=== PATIENT | male | born 1955 | race Caucasian/White ===

== ENCOUNTER 2023-10-19 14:37 | Outpatient (REF) | payer MEDICARE, MEDICAID, SELFPAY ==
--- NOTE | 2023-10-20 10:38 | MHC.AU.MED ---
Medical Clearance for Hearing Instrumentation Date: 10/19/23 Patient Name: Ryan Hathaway Date of : 1955 Primary Care Provider: Winston Carter MD We have seen your patient on 10/19/23 and have determined that they are a candidate for amplification (See accompanying report). Specifically, they would benefit from: Hearing aid use in both ears There is a statute that addresses Medical Evaluation Requirements prior to fitting a patient with a hearing aid. According to [place] statute 265 CMR:6.03(1), (a) General. Except as provided in 265 CMR 6.03(1)(b), a pigment pumper shall not sell a hearing aid unless the prospective user has presented to the pigment pumper a written statement signed by a licensed physician that states that the patient's hearing loss has been medically evaluated and the patient may be considered a candidate for a hearing aid. The medical evaluation must have taken place within the preceding six months. Please note: Due to the [place] Statute referenced above, we cannot accept a signature other than that of a licensed physician. DIALYSIS CHIEF EQUIPMENT TECHNICIAN and PA signatures cannot be accepted. I am in agreement with the above recommendation. There is no medical contraindication for hearing instrumentation. Physician Signature Date Physician Name (Printed)
--- NOTE | 2023-10-20 10:50 | MHC.AU.HA1 ---
Hearing Aid Evaluation Date of Visit: 10/19/23 Historical Information: Description of Hearing: Mild sloping to moderately-severe sensorineural hearing loss, bilaterally Summary: Ryan is ready to pursue amplification to help ease some of his communication difficulties. Discussed pros and cons of different styles and technologies. Ryan opted for rechargeable custom hearing aids, as he was adamant that he did not want any portion of the hearing aid behind his ears. He is also interested in bluetooth capabilities to his iPhone. Impressions taken, bilaterally, without incident - in hold drawer, waiting for medical clearance. Hearing Aid Prescription: Based on the individual?s shared listening needs, communication environments, dexterity, desire for connectivity, and personal preferences, the following prescription for amplification has been made: Right ear: Make, Model, Color: PromoJam AI 1600 ITC-R Color: [place] Battery Size: Rechargeable Left ear: Left ear prescription to be same as Right Hearing Aid above: Make, Model, Color: PromoJam AI 1600 ITC-R Color: [place] Battery Size: Rechargeable Accessories/Assistive Technology: Hvac Field Service Technician Plan of Care: Patient wishes to purchase hearing aids as prescribed Action Taken/Action Needed: Medical Clearance to be requested from PCP/ENT. Hearing Instrument Fitting to be scheduled when materials arrive Primary Diagnosis: H90.3 Bilateral Sensorineural Hearing Loss Signature: Provider: Levon Mckee, [facility]
== END 2023-10-19 14:38 | disposition home or self-care (01) ==
LOC: HO.SH 14:37
PROVIDERS: Visit Provider Internal Medicine
DX: Z01.118 Encounter for examination of ears and hearing with other abnormal findings (principal); Z46.1 Encounter for fitting and adjustment of hearing aid; H90.3 Sensorineural hearing loss, bilateral
CPT/HCPCS: 92557; 92591; V5275

== ENCOUNTER 2023-11-19 12:56 | Outpatient (REF) | payer MEDICARE, MEDICAID, SELFPAY | END 2023-11-19 12:57 | disposition home or self-care (01) | LOC: HO.HAP 12:56 | PROVIDERS: PCP Internal Medicine; Visit Provider Internal Medicine | DX: Z46.1 Encounter for fitting and adjustment of hearing aid (principal); H90.3 Sensorineural hearing loss, bilateral | CPT/HCPCS: V5011; V5020; V5160; V5259 ==

== ENCOUNTER 2023-12-03 13:40 | Outpatient (REF) | payer MEDICARE, MEDICAID, SELFPAY | END 2023-12-03 13:41 | disposition home or self-care (01) | LOC: HO.HAP 13:40 | PROVIDERS: Visit Provider Internal Medicine | DX: Z13.89 Encounter for screening for other disorder (principal) ==

== ENCOUNTER 2024-01-13 13:57 | Outpatient (REF) | payer SELFPAY | END 2024-01-13 13:58 | disposition home or self-care (01) | LOC: HO.HAP 13:57 | PROVIDERS: Visit Provider Internal Medicine | DX: Z46.1 Encounter for fitting and adjustment of hearing aid (principal) | CPT/HCPCS: V5267 ==

== ENCOUNTER 2024-08-29 11:45 | Outpatient (REF) | payer SELFPAY ==
--- OUTSIDE RECORDS SUMMARY | 2024-08-29 13:23 | XMS_ITS | Continuity of Care Document ---
Author Organization [facility] ter Address [address] [place] [id number]- Care Team Providers Care Refuse Collector Supervisor Name Role Phone Lane Cat MD Primary Care Physician Bridget weaver Encounter [facility] Date(s): 08/23/24 - 08/23/[address] [address] Discharge Disposition: A-D/C Home Attending Physician: Nitin Rodríguez MD Admitting Physician: Nitin Rodríguez MD Referring Physician: Nitin Rodríguez MD Encounter Type: Disch Daystay Allergies, Adverse Reactions, Alerts No Known Allergies Medications aspirin 81 mg oral delayed release tablet 81 mg, 1, tablet, By Mouth, Daily, # 30 tablet, Refills 0, Maintenance, 08/23/24 11:04:00 AM EST, Partial fill upon patient request if the prescription is for a schedule II opioid drug. Start Date: 08/23/24 Status: Ordered Quantity: 30.0 Unit: tablet Repeat number: 1 Coreg 25 mg oral tablet 25 mg, 1, tablet, By Mouth, 2 times a day, # 60 tablet, Refills 0, Maintenance, 08/23/24 11:01:00 AM EST, Partial fill upon patient request if the prescription is for a schedule II opioid drug. Start Date: 08/23/24 Status: Ordered Quantity: 60.0 Unit: tablet Repeat number: 1 Digox 125 mcg (0.125 mg) oral tablet 1 tablet = 125 mcg, By Mouth, Daily, 0 Refills, Maintenance, 08/23/24 11:01:00 AM EST, Partial fill upon patient request if the prescription is for a schedule II opioid drug. Start Date: 08/23/24 Status: Ordered Repeat number: 1 Entresto 24 mg-26 mg oral tablet 1 tablet, By Mouth, 2 times a day, # 60 tablet, 5 Refills, Maintenance, 08/23/24 12:09:00 PM EST, Tablet, [facility], Partial fill upon patient request if the prescription is for a schedule II opioid drug., 1 tablet By Mouth 2 times a day, 175, cm, 08/23/24 11:11:00 EST, Height Start Date: 08/23/24 Status: Ordered Quantity: 60.0 Unit: tablet Repeat number: 6 Fish Oil 1200 mg oral capsule 1 capsule = 1,200 mg, By Mouth, Daily, # 90 capsule, 0 Refills, Maintenance, 08/23/24 11:01:00 AM EST, Capsule, Partial fill upon patient request if the prescription is for a schedule II opioid drug. Start Date: 08/23/24 Status: Ordered Quantity: 90.0 Unit: capsule Repeat number: 1 Jardiance 10 mg oral tablet 1 tablet = 10 mg, By Mouth, Daily in AM, # 30 tablet, 5 Refills, Maintenance, 08/23/24 12:09:00 PM EST, Tablet, [facility], Partial fill upon patient request if the prescription is for a schedule II opioid drug., 175, cm, 08/23/24 11:11:00 EST, Height Start Date: 08/23/24 Status: Ordered Quantity: 30.0 Unit: tablet Repeat number: 6 metFORMIN 500 mg oral tablet 2 tablet = 1,000 mg, By Mouth, 2 times a day, # 60 tablet, 0 Refills, Maintenance, 08/23/24 11:02:00 AM EST, Tablet, Partial fill upon patient request if the prescription is for a schedule II opioid drug. Start Date: 08/23/24 Status: Ordered Quantity: 60.0 Unit: tablet Repeat number: 1 Multivitamin 0 Refills, Maintenance, 08/23/24 11:02:00 AM EST, Partial fill upon patient request if the prescription is for a schedule II opioid drug. Start Date: 08/23/24 Status: Ordered Repeat number: 1 oxyCODONE 10 mg oral tablet 1 tablet = 10 mg, By Mouth, Every 4 hours, PRN as needed for pain, 0 Refills, Maintenance, 08/23/24 11:03:00 AM EST, Tablet, Partial fill upon patient request if the prescription is for a schedule II opioid drug. Start Date: 08/23/24 Status: Ordered Repeat number: 1 Ozempic (1 mg dose) 4 mg/3 mL subcutaneous solution = 1 mg, Subcutaneous Injection, Every week, # 3 mL, 0 Refills, Maintenance, 08/23/24 11:04:00 AM EST,Solution, Partial fill upon patient request if the prescription is for a schedule II opioid drug. Start Date: 08/23/24 Status: Ordered Quantity: 3.0 Unit: mL Repeat number: 1 Prebiotic Inulin-FOS = 3 Gm, By Mouth, Daily, 0 Refills, Maintenance, 08/23/24 11:02:00 AM EST, Partial fill upon patient request if the prescription is for a schedule II opioid drug. Start Date: 08/23/24 Status: Ordered Repeat number: 1 sertraline 100 mg oral tablet 2 tablet = 200 mg, By Mouth, Daily, # 30 tablet, 0 Refills, Maintenance, 08/23/24 11:03:00 AM EST, Tablet, Partial fill upon patient request if the prescription is for a schedule II opioid drug. Start Date: 08/23/24 Status: Ordered Quantity: 30.0 Unit: tablet Repeat number: 1 simvastatin 40 mg oral tablet 40 mg, 1, tablet, By Mouth, Daily at bedtime, # 30 tablet, Refills 0, Maintenance, 08/23/24 11:04:00 AM EST, Partial fill upon patient request if the prescription is for a schedule II opioid drug. Start Date: 08/23/24 Status: Ordered Quantity: 30.0 Unit: tablet Repeat number: 1 Xarelto 15 mg oral tablet 1 tablet = 15 mg, By Mouth, Daily in PM, # 30 tablet, 0 Refills, Maintenance, 08/23/24 11:04:00 AM EST, Tablet, Partial fill upon patient request if the prescription is for a schedule II opioid drug. Start Date: 08/23/24 Status: Ordered Quantity: 30.0 Unit: tablet Repeat number: 1 Problem List Condition Confirmation Course Effective Dates Status H ealth Status Informant Atrial Fibrillation Confirmed 10/02/11 Active Other Primary Cardiomyopathies Confirmed 10/02/11 Active Severe obesity Confirmed Active Vital Signs Most recent to oldest [Reference Range]: 1 2 3 Height 175 cm (08/23/24 11:11 AM) Weight 124 kg (08/23/24 11:11 AM) Oxygen Saturation [94-100 %] 95 % (08/23/24 2:00 PM) 94 % (08/23/24 1:30 PM) 95 % (08/23/24 1:00 PM) Pulse Rate [55-90 bpm] 93 bpm *H* (08/23/24 11:11 AM) Body Mass Index [18.5-24.99 kg/m2] 40.49 kg/m2 *>HHI* (08/23/24 11:11 AM) Blood Pressure [90-138/55-84 mm Hg] 127/76mm Hg (08/23/24 2:00 PM) 131/73mm Hg (08/23/24 1:30 PM) 124/74mm Hg (08/23/24 1:00 PM) Respiratory Rate [16-30 br/min] 25 br/min (08/23/24 2:00 PM) 21 br/min (08/23/24 1:30 PM) 19 br/min (08/23/24 1:00 PM) Temperature [96.8-100.4 DegF] 98.7 DegF (08/23/24 11:11 AM) Mode of Delivery (Oxygen) Room air (08/23/24 2:00 PM) Room air (08/23/24 1:30 PM) Room air (08/23/24 1:00 PM) Blood pressure sites Arm, left (08/23/24 12:14 PM) Arm, left (08/23/24 11:11 AM) Arm, right (08/23/24 10:45 AM) Temperature Route Temporal (08/23/24 11:11 AM) Weight Obtained Via Standing scale (08/23/24 11:11 AM) Social History Social History Type Response Smoking Status Current every day osorio melchor entered on: 08/19/16 Sex Sex Representation Male (finding) Note * Event Display: Hemodynamic Procedure Report Authored Date: [id number] * Jennifer Lay RN: PERFORM Event Display: Discharge/Transfer Note Hospital Authored Date: [id number] Nursing Discharge Note Entered On: 08/23/2024 15:00 EST Performed On: 08/23/2024 14:56 EST by Jennifer Lay RN Nursing Discharge Note 2 Discharge Time : 08/23/2024 14:30 EST Discharge Level of Care at Discharge : Home/Assisted/Foster Care Patient Left Unit Via : Ambulatory Patient Accompanied Off Unit with : Responsible adult DC Instructions Provided & Signed by Pt : Yes Patient Understands D/C Instructions : Yes Patient Instructions Discharge Signed : Yes Discharge Comments : Patient discharged without issue- right radial access site stable, no ooze or hematoma. 100% teachback with all education and med changes Did Pt have Specialty Bed or Wound Vac : No Jennifer Lay RN - 08/23/2024 14:56 EST * Jennifer Lay RN: PERFORM Event Display: Patient Education/Instruction Authored Date: [id number] Inpatient Adult Discharge Instructions. [address] [address] Name: NEERU MEDELLIN : 1955?? Visit: 08/23/2024 09:53?? Current Date: 08/23/2024 13:43 ?? Account: [id number]?? Inpatient Adult Discharge Instructions We would like to thank you for allowing us to assist you with your healthcare needs. The following includes patient education materials and information regarding your injury/illness. Our entire staffstrives to provide an excellent experience for our patients and their families. PLEASE ENSURE YOU FOLLOW-UP PER THE INSTRUCTIONS BELOW! ?? YOUR OPINION IS IMPORTANT TO US! Please complete the survey you may receive by mail or email. Your feedback will be used to make improvements to the healthcare experiences of our patients and their families. Surveys are administered by [employer] ?? If further treatment with your primary care physician or another doctor is recommended, it is important for you to keep the appointment. Call your primary care physician or return to the Emergency Department immediately if your condition worsens, fails to improve, or new symptoms develop. If you need to find a doctor, you can call [facility] for a referral at [phone] or toll free at [phone]) or log in to [email or web address] [email or web address].. ?? [facility], in keeping with [facility] guidance, no longer requires face masks for staff, patientsor visitors in most situations. Similiar to time spent indoors at other locations, there is the chance that you were exposed to repiratory viruses during your time with us (such as flu or COVID-19). If you develop symptoms concerning for a viral respiratory infection, please seek testing (and treatment if indicated) from your medical provider or home test kit. ?? You can view and manage your care through the patient portal or by using a health care jody of your choosing. [employer] is a website that allows you to securely view your medical information including your hospital discharge summary, office visit summaries, medications and follow-up visits. You can also request appointments, renew medications, and request access to your medical information using a health care jody of your choosing, or just ask a question. You are entitled to know the individuals who participated in your treatment. This information is available within your medical record and will be provided upon your request. You can enroll at [email or web address] or register d uring your next office visit. You have been discharged from [facility], Patient Care Unit: CARE??. If you have any questions regarding these instructions, including results of studies pending, afteryou leave, please call us and we will be happy to assist you 12/01. [facility] Nursing Unit Direct Phone Number, for 12/01 contact and results of studies pending CARE [address] [place] [address] Your Care Team Attending Physician Nitin Rodríguez MD?? Consulting Providers Nitin Rodríguez MD?? Discharging Providers Everett Ibanez MD Tests Performed Below is a partial list of the tests performed during your hospitalization. You may have had other tests and procedures not included in this list. Please discuss all test results with your provider. Basic Metabolic Panel CBC GLUCOSE POC INR PTT Type and Screen Basic Metabolic Panel?? CBC?? Glucose POC?? INR?? PTT?? Type and Screen?? Primary Care Provider Stephania DELAROSA , Lane Morgan?? Advance Directive Health Care Proxy on File No Discharge Vitals Temperature: 98.7 DegF Height: 175 cm Pulse Rate:??93 bpm??High Weight: 124 kg Respiratory Rate: 23 br/min Body Mass Index:??40.49 kg/m2??Critical Systolic Blood Pressure: 104 mm Hg Body surface area: 2.46 Diastolic Blood Pressure: 75 mm Hg ?? Oxygen Saturation: 95 % ?? Studies Pending All studies ordered during this hospital stay have been completed unless listed below. Please discuss all pending results with your provider listed above in these instructions. ?? No incomplete studies found?? What to do next Instructions From Your Doctor ?? Orders?? arterial hemostasis please, if no complications. ??Thanks!, ??08/23/24 12:16:00 EST?? You Need to Schedule the Following Appointments Follow Up with??Lane Cat MD Discharge Medications NEERU MEDELLIN :1955 Visit Date:08/23/2024 Medications: Please continue your medications until treatment is completed or stopped by your provider. Medications not listed below should be discontinued. Discuss any questions related to medications with your provider. What How Much When Instructions Next Dose New empagliflozin (Jardiance 10 mg oral tablet) 1 tab(s) Oral Daily in the morning Refills: 5 Pickup at [facility] Tomorrow AM New sacubitril-valsartan (Entresto 24 mg-26 mg oral tablet) 1 tab(s) Oral Twice a day Refills: 5 Pickup at [facility] Tonight Unchanged Aspirin (aspirin 81 mg oral delayed release tablet) 1 tab(s) Oral Daily Resume Unchanged Carvedilol (Coreg 25 mg oral tablet) 1 tab(s) Oral Twice a day Resume Unchanged Digoxin (Digox 125 mcg (0.125 mg) oral tablet) 1 tab(s) Oral Daily Resume Unchanged Inulin (Prebiotic Inulin-FOS) 3 gram Oral Daily Resume Unchanged Metformin (metFORMIN 500 mg oral tablet) 2 tab(s) Oral Twice a day Resume Unchanged Multivitamin Resume Unchanged [place]-3 Polyunsaturated Fatty Acids (Fish Oil 1200 mg oral capsule) 1 capsule Oral Daily Resume Unchanged Oxycodone (oxyCODONE 10 mg oral tablet) 1 tab(s) Oral Every 4 hours as needed for as needed for pain Resume Unchanged rivaroxaban (Xarelto 15 mg oral tablet) 1 tab(s) Oral Daily in PM Resume Unchanged semaglutide (Ozempic (1 mg dose) 4 mg/ 3 mL subcutaneous solution) 1 Milligram Subcutaneous Injection Every week Resume Unchanged Sertraline (sertraline 100 mg oral tablet) 2 tab(s) Oral Daily Resume Unchanged Simvastatin (simvastatin 40 mg oral tablet) 1 tab(s) Oral Daily at Bedtime Resume Pharmacy Information [facility]: [address], [place] [id number] [phone] ?? What How Much When Comments Stop Taking canagliflozin (Invokana 100 mg oral tablet) 1 tab(s) Oral Daily Prescription Given During Visit empagliflozin (Jardiance 10 mg oral tablet) - 1 tablet = 10 mg, By Mouth, Daily in AM, # 30 tablet,5 Refills, [facility], [address] [place] [phone]?? sacubitril-valsartan (Entresto 24 mg-26 mg oral tablet) - 1 tablet, By Mouth, 2 times a day, # 60 tablet, 5 Refills, [facility], [address] [place] [phone]?? Laboratory Results Below is a partial list of the most recent Laboratory test results done prior to this discharge. You may have had other tests and procedures not included in this list. Please discuss all test resultswith your provider. Basic Metabolic Panel (08/23/2024) ???Sodium - 140 mmol/L???Potassium - 4.2 mmol/L???Chloride - 104 mmol/L???Bicarbonate Level - 25 mmol/L???Anion Gap - 11 mmol/L???Glucose Level - 117 mg/dL???BUN - 22 mg/dL???Creatinine-Blood - 1.64 mg/dL???Estimated GFR Creatinine - 46 ML/MIN/1.73 M2???Calcium - 9.2 mg/dL CBC (08/23/2024) ???WBC - 7.6 k/mm3???RBC - 4.96 m/mm3???Hgb - 15.6 Gm/dL???Hct - 47.8 %???MCV - 96.4 femtoliters???MCH - 31.5 pg???MCHC - 32.6 Gm/dL???Platelet Count - 178 k/mm3???RDW-SD - 45.1 femtoliters???MPV - 9.4 femtoliters???Nucleated RBC (Automated) - 0.0 #/100 WBC'S???Abs. NRBC - 0.0 k/mm3 GLUCOSE POC (08/23/2024) ???Glucose, POC - 129 mg/dL INR (08/23/2024) ???INR - 1.1???Protime (PT) - 11.8 seconds PTT (08/23/2024) ???APTT - 28.3 seconds Type and Screen (08/23/2024) ???Blood Type - A Positive???Antibody Screen - Negative You will be contacted within 72 hours with your results. Allergies (NKA means No Known Allergies) NKA Problems Active Problems??(3) Atrial Fibrillation?? Other Primary Cardiomyopathies?? Severe obesity?? Education Materials Below is the list of Educational Leaflet Providered with your Discharge Instructions. [employer] Patient Education - Surgery Radial Cath Approach Discharge Instructions?? [employer] Patient Education - Procedural Sedation?? [employer] Patient Education - Discharge Instructions for Cardiac Catheterization?? Valuables and Belongings I fully understand and agree that [facility] accepts no responsibility for all my personal property including clothing, toilet articles, radios, jewelry, dentures, hearing aids, rings, money, or any other property that is in my possession or is brought to me after admission. I understand certain valuables may be placed in a hospital safe for a short period of time. I understand that the hospital is not liable for loss or damage due to accident, fire, or other natural occurrence while said property is in the safe. I accept full responsibility for any personal property that I keep with me, and will not hold the hospital responsible in case of loss or disappearance. I acknowledge that i have been encouraged to send valuables and belongings home. ?? Date for Pt to Sign Valuables/Belongings: 08/23/24 11:11:00 ?? Valuables & Belongings ?? Clothes Electronic devices Jewelry Monetary Items Personal devices Miscellaneous Medications (Valuables) Valuables at Bedside Pants, Shirt, Shoes, Undergarments ? Valuables Sent Home ? Valuables Sent to Security ? Valuables Sent to Locker ? Other Discharge Information ? Pulmonary Rehab Status?? Pulmonary Rehab Discharge Status?? Respiratory Rate: 23 br/min ? Common Emergency Awareness Tips IS IT A STROKE? Act FAST and Check for these signs: FACE Does the face look uneven? ARM Does one arm drift down? SPEECH Does their speech sound strange? TIME Call at any sign of stroke ?? Heart Attack Signs Chest discomfort: Most heart attacks involve discomfort in the center of the chest and lasts more than a few minutes, or goes away and comes back. It can feel like uncomfortable pressure, squeezing, fullness or pain. Discomfort in upper body: Symptoms can include pain or discomfort in one or both arms, back, neck, jaw or stomach. Shortness of breath: With or without discomfort. Other signs: Breaking out in a cold sweat, nausea, or lightheaded. Remember, MINUTES DO MATTER. If you experience any of these heart attack warning signs, call to get immediate medical attention! ?? Smoking can increase your chances of developing chronic health problems and can cause harmful effects to other family members in your house. If you smoke, you are strongly encouraged to quit. Please call [facility] at [phone] or [phone] ([phone]) or log in to [email or web address] for referrals to smoking cessation programs. ?? 217 Suicide & Crisis Lifeline is available 12/01 if you or someone you know needs to find a reason to keep living. By calling 619 you'll be connected to a skilled, trained counselor at a crisis center in your area. INPATIENT DISCHARGE INSTRUCTIONS SIGNATURE PAGE LACIE NEERU Location:[facility] Registration Date and Time:08/23/2024 09:53 EST Primary Care Physician: Stephania DELAROSA , Lane Morgan Attending Physician: Marcos DELAROSA, Nitin Hunt, I NEERU MEDELLIN, have received the above patient education materials/instructions and have verbalized understanding. If ambulance or transport services are being used I further acknowledge being given a choice of service. ?? If you need to contact me, please call me at this number: . Patient/Manager Front Office Name: Patient/Manager Front Office Signature: Relationship to Patient: Witness Name/Signature: Date: * Jennifer Lay RN: PERFORM, SIGN, VERIFY Event Display: Patient Education Handout Authored Date: [id number] * Jennifer Lay RN: PERFORM Event Display: Patient Education Leaflets Authored Date: [id number] Empagliflozin ?? [id number] Empagliflozin Brand Name(s): Jardiance??, Glyxambi?? (as a combination product containing Empagliflozin and Linagliptin), Synjardy?? (as a combination product containing Empagliflozin and Metformin), Trijardy?? (as a combination product containing Empagliflozin, Linagliptin, and Metformin) ?? WHY is this medicine prescribed? Empagliflozin is used along with diet and exercise, and sometimes with other medications, to lower blood sugar levels in adults and children 10 years of age and older with type 2 diabetes (condition in which blood sugar is too high because the body does not produce or use insulin normally). Empagliflozin is also used to reduce the risk of stroke, heart attack, or in people who have type 2 diabetes along with heart and blood vessel disease. Empagliflozin is also used in adults with heart failure to reduce the risk of needing to be hospitalized and due to heart and blood vessel disease. It is also used to reduce the risk of worsening kidney disease, the need to be hospitalized, and the risk of due to heart disease in adults with kidney disease. Empagliflozin is in a class of medications called sodium-glucose co-transporter 2 (SGLT2) inhibitors. It lowers blood sugar by causing the kidneys to get rid of more glucose in the urine. Empagliflozin is not used to treat type 1 diabetes (condition in which the body does not produce insulin and, therefore, cannot control the amount of sugar in the blood) or diabetic ketoacidosis (a serious condition that may develop if highblood sugar is not treated). Over time, people who have diabetes and high blood sugar can develop serious or life-threatening complications, including heart disease, stroke, kidney problems, nerve damage, and eye problems. Taking empagliflozin, making lifestyle changes (e.g., diet, exercise, quitting smoking), and regularly checking your blood sugar may help to manage your diabetes and improve your health. This therapy may also decrease your chances of having a heart attack, stroke, or other diabetes-related complications such as kidney failure, nerve damage (numb, cold legs or feet; decreased sexual ability in men and women), eye problems, including changes or loss of vision, or gum disease. Your doctor and other healt hcare providers will talk to you about the best way to manage your diabetes. HOW should this medicine be used? Empagliflozin comes as a tablet to take by mouth. It is usually taken once a day in the morning with or without food. Take empagliflozin at around the same time every day. Follow the directions on your prescription label carefully, and ask your doctor or pharmacist to explain any part you do not understand. Take empagliflozin exactly as directed. Do not take more or less of it or take it more often than prescribed by your doctor. Your doctor may start you on a low dose of empagliflozin and increase your dose as needed. Empagliflozin helps to control your condition, but does not cure it. Continue to take empagliflozineven if you feel well. Do not stop taking empagliflozin without talking to your doctor. Ask your pharmacist or doctor for a copy of the medical records tech's information for the patient. Are there OTHER USES for this medicine? This medication may be prescribed for other uses; ask your doctor or pharmacist for more information. What SPECIAL PRECAUTIONS should I follow? Before taking empagliflozin, ??? tell your doctor and pharmacist if you are allergic to empagliflozin, any other medications, orany of the ingredients in empagliflozin tablets. Ask your pharmacist for a list of the ingredients.??? tell your doctor and pharmacist what other prescription and nonprescription medications, vitamins, nutritional supplements, and herbal products you are taking or plan to take. Your doctor may need to change the doses of your medications or monitor you carefully for side effects. ??? tell your doctor if you regularly drink alcohol or sometimes drink large amounts of alcohol in a short time (binge drinking), have ever had an amputation, are on a low sodium diet, or if you have an infection. Also, tell your doctor if you have or have ever had urinary tract infections or problems with urination, low blood pressure, high cholesterol, pancreatic disease including pancreatitis (swelling of thepancreas) or have had surgery on your pancreas, yeast infections in the genital area, peripheral vascular disease (narrowing of blood vessels in feet, legs, or arms causing numbness, pain, or coldness in that part of the body), neuropathy (nerve damage that causes tingling, numbness, and pain, usually in your hands and feet), foot ulcers or sores, or kidney or liver disease. If you are male, tellyour doctor if you have never been circumcised. Tell your doctor if you are eating or drinking lessdue to illness, surgery, or a change in your diet; if you are following a ketogenic diet (a high fat, low carbohydrate diet); or if you have recently had diarrhea, vomiting, been in the sun too long,or have been sweating a lot, which may cause dehydration (loss of a large amount of body fluids). ??? tell your doctor if you are , plan to become , or are . Do not breastfeed while you are taking empagliflozin. If you become while taking empagliflozin, call your doctor. ??? if you are having surgery, including dental surgery, tell the doctor or dentist that you are taking empagliflozin. Your doctor will probably tell you to stop taking empagliflozin at least 3 days before a surgery. ??? alcohol may cause a change in blood sugar. Ask your doctor about thesafe use of alcoholic beverages while you are taking empagliflozin. ??? you should know that empagliflozin may cause dizziness, lightheadedness, and fainting when you get up too quickly from a lying position. If you have this problem, call your doctor. This problem is more common when you first start taking empagliflozin. To avoid this problem, get out of bed slowly, resting your feet on the floor for a few minutes before standing up. ??? ask your doctor what to do if you get sick, develop an infection or fever, experience unusual stress, or are injured. These conditions can affect your bloodsugar and the amount of empagliflozin you may need. What SPECIAL DIETARY instructions should I follow? Be sure to follow all exercise and dietary recommendations made by your doctor or dietitian. It is important to eat a healthful diet and exercise regularly. Follow your doctor's instructions about drinking enough fluids throughout the day while you are on this medication. What should I do IF I FORGET to take a dose? Take the missed dose as soon as you remember it. However, if it is almost time for the next dose, skip the missed dose and continue your regular dosing schedule. Do not take a double dose to make up for a missed one. What SIDE EFFECTS can this medicine cause? Some side effects can be serious. If you experience any of these symptoms, call your doctor immediately: ??? frequent, urgent, burning, or painful urination ??? urine that is cloudy, red, pink, or brown ??? pelvic or back pain, fever, nausea, or vomiting ??? (in women) vaginal odor, white or yellowish vaginal discharge (may be lumpy or look like cottage cheese), or vaginal itching ??? (in men) redness, itching, or swelling of the penis; rash on the penis; foul smelling discharge from the penis; or pain in the skin around the penis ??? feeling tired, weak, or uncomfortable; along with a fever and pain, tenderness, redness, and swelling of the genitals or the area between the genitals and the rectum If you experience any of the following symptoms, stop taking empagliflozin and call your doctor immediately or get emergency medical treatment: ??? rash ??? hives ??? itching ??? difficulty swallowing or breathing ??? swelling of the face, throat, tongue, lips, mouth, or eyes ??? hoarseness If you experience any of the following symptoms of ketoacidosis, stop taking empagliflozin and callyour doctor immediately or get emergency medical treatment. If possible, check for ketones in your urine if you have these symptoms, even if your blood sugar is less than 250 mg/dL: ??? nausea ??? vomiting ??? stomach-area pain ??? tiredness ??? difficulty breathing You should know that empagliflozin can increase the risk of having a lower limb (toe, foot, or leg)amputation. Your doctor will tell you how to take care of your legs and feet properly to help avoidinfections and complications that could lead to an amputation. Follow the doctor's instructions carefully and call your doctor right away if you have any pain, tenderness, sores, ulcers, or swollen, w arm, reddened area in your leg or foot, fever or chills, or other signs and symptoms of infection. Empagliflozin can cause dehydration. It is important that you drink plenty of water while taking empagliflozin. Talk to your doctor or pharmacist about the right amount of water to drink to prevent dehydration while taking empagliflozin. Empagliflozin may cause other side effects. Call your doctor if you have any unusual problems whiletaking this medication. If you experience a serious side effect, you or your doctor may send a report to the Food and Drug Administration's (FDA) MedWatch Adverse Event Reporting program online (https://www.fda.gov/Safety/MedWatch) or by phone ( ). What should I know about STORAGE and DISPOSAL of this medication? Keep this medication in the container it came in, tightly closed, and out of reach of children. Store it at room temperature and away from excess heat and moisture (not in the bathroom). It is important to keep all medication out of sight and reach of children as many containers (such as weekly pill minders and those for eye drops, creams, patches, and inhalers) are not child-resistant and young children can open them easily. To protect young children from poisoning, always lock safety caps and immediately place the medication in a safe location ??? one that is up and away and out of their sight and reach. https://www.[employer].org Unneeded medications should be disposed of in special ways to ensure that pets, children, and otherpeople cannot consume them. However, you should not flush this medication down the toilet. Instead,the best way to dispose of your medication is through a medicine take-back program. Talk to your pharmacist or contact your local garbage/recycling department to learn about take-back programs in your community. See the FDA's Safe Disposal of Medicines website (https://goo.gl/c4Rm4p) for more information if you do not have access to a take-back program. What should I do in case of OVERDOSE? In case of overdose, call the poison control helpline at . Information is also available online at https://www.poisonhelp.org/help. If the victim has collapsed, had a seizure, has trouble breathing, or can't be awakened, immediately call emergency services at 040. What OTHER INFORMATION should I know? Keep all appointments with your doctor and the laboratory. Your doctor will probably order certain laboratory tests before and during your treatment to check your body's response to empagliflozin. Your blood sugar levels should be checked regularly to determine your response to empagliflozin. Your doctor will order other lab tests, including glycosylated hemoglobin (HbA1c), to check your response to empagliflozin. Your doctor will also tell you how to check your response to this medication by measuring your blood sugar levels at home. Follow these instructions carefully. Before having any laboratory test, tell your doctor and the laboratory personnel that you are taking empagliflozin. Because of the way this medication works, your urine may test positive for glucose. You should always wear a diabetic identification bracelet to be sure you get proper treatment in anemergency. Do not let anyone else take your medication. Ask your pharmacist any questions you have about refilling your prescription. It is important for you to keep a written list of all of the prescription and nonprescription (cqql-pdr-yvqhzlm) medicines you are taking, as well as any products such as vitamins, minerals, or otherdietary supplements. You should bring this list with you each time you visit a doctor or if you areadmitted to a hospital. It is also important information to carry with you in case of emergencies. This report on medications is for your information only, and is not considered individual patient advice. Because of the changing nature of drug information, please consult your physician or pharmacist about specific clinical use. The [place] [employer] represents that the information provided hereunder was formulated with a reasonable standard of care, and in conformity with professional standards in the field. The [place] [employer] makes no representations or warranties, express or implied, including, but not limited to, any implied warranty of merchantability and/or fitness for a particular purpose, with respect to such information and specifically disclaims all such warranties. Users are advised that decisions regarding drug therapy are complex medical decisions requiring the independent, informed decision of an appropriate health rehab care assistant, and the information is provided for informational purposes only. The entire monograph for a drug should be reviewed for a thorough understanding of the drug's actions, uses and side effects. The [place] [employer] does not endorse or recommend the use of any drug.The information is not a substitute for medical care. AHFS?? Patient Medication Information???. ?? Copyright, 2023. The [employer] [employer]??, [address], [address], [place], [place]. All Rights Reserved. Duplication for commercial use must be authorized by [facility]. Selected Revisions: August 06, 2023. AHFS?? Patient Medication Information???. ?? Copyright, 2024 ?? * Jennifer Lay RN: PERFORM Event Display: Patient Education Leaflets Authored Date: [id number] Surgery Radial Cath Approach Discharge Instructions ?? 278 Radial Cath Approach Discharge Instructions ?? Activity Take it easy the rest of the day. Limit your activity on the affected side.?? Act as if your arm is broken for 24 hours. No lifting with affected arm for 24 hours. No pushing or pulling with the affected arm. Do not reach or lift with the affected arm. Do not place excessive pressure on the wrist. ?? Precautions Due to intravenous sedation: It is recommended that someone stay with you for the first night after your procedure. Do not drive or operate hazardous machinery for 24 hours. Do not make legal decisions for 24 hours. Avoid alcohol for 24 hours. Unless directed otherwise, keep yourself hydrated. ?? Dressing/Incision Care You may remove the dressing 24 hours after your procedure. Replace with band aid for an additional 24 hours. You may shower and cleanse the site with soap & water then pat dry. Avoid submersion of site in water x 5 days. Cover the with a clean band aid daily until site is healed. If the band aid becomes soiled, replacewith a clean new one. Do not apply any ointments, lotions, gels or powders to the puncture site. ?? When to contact your doctor If any of the following signs of infection occur: Fever greater than 100 degrees F Increased pain Drainage, redness or warmth at puncture site Tingling of the fingers and hand that last longer than 3 days Slight bubble of blood or bleeding from site: apply manual pressure and notify your doctor ?? Emergency situations: Bleeding from the site that will not stop: apply manual pressure and notify your doctor Profuse bleeding streaming from the puncture site: Apply manual pressure and notify your doctor immediately If your hand becomes bluish, cold to the touch, or painful, notify your doctor immediately or go toEmergency Department. For these emergent situations: If unable to contact your physician, call 911. ?? * Jennifer Lay RN: PERFORM Event Display: Patient Education Leaflets Authored Date: [id number] Procedural Sedation ?? 11781 Procedural Sedation Procedural sedation is medicine to ease discomfort, pain, and anxiety during a procedure. The medicine is often given through an IV (intravenous) line in your arm or hand. In some cases, the medicinemay be taken by mouth or inhaled. While you are under sedation, you will likely be awake. But you may not remember it afterward. Why procedural sedation is used Sedation is used for many types of procedures. The goal is to reduce pain, anxiety, and stressful memories of a procedure. It can help your healthcare provider treat you. For example, having a brokenbone fixed may be easier if you feel relaxed. This type of sedation is used only for short, basic procedures. It's not used for complex surgery. Some procedures that use this type of sedation include: ??? Dental surgery ??? Breast biopsy, to take a sample of breast tissue ??? Endoscopy, to look at gastrointestinal problems ??? Bronchoscopy, tocheck for lung problems ??? Bone or joint realignment, to fix a broken bone or dislocated joint ???Minor foot or skin surgery ??? Electrical cardioversion, to restore a normal heart rhythm ??? Lumbar puncture, to check for neurological disease ?? Risks of procedural sedation Risks and possible side effects include: ??? Headache ??? Nausea and vomiting ??? Bad memories of the procedure ??? Slowed breathing ??? Changes in heart rate and blood pressure (rare) ??? Inhalation of stomach contents into your lungs (rare) Side effects will likely go away shortly after the procedure. Your healthcare team will watch your heart rate and breathing during and after your sedation. This is to help prevent problems. Your own risks may vary. They can be based on your age and your overall health. They also depend onthe type of sedation you are given. Talk with your healthcare provider about the risks that apply most to you. ?? Getting ready for procedural sedation Talk with your provider about how to get ready for your procedure. Tell them about all the medicines you take. This includes xscm-kle-vgqsmbj medicines, such as ibuprofen. It also includes vitamins, herbs, and other supplements. You may need to stop taking some medicines before the procedure, such as blood thinners and aspirin. If you smoke, you should stop. This is to lessen the chance of a lungproblem. Talk with your provider if you need help to stop smoking. Tell your provider if you: ??? Have had any problems in the past with sedation or anesthesia ??? Have had any recent changes in your health, such as an infection or fever ??? Are or think you could be Also: ??? Follow any directions you are given for not eating or drinking before procedure. ??? Ask a trusted adult to take you home after the procedure. You can???t drive on the day you have sedation. ??? Ask a trusted adult to stay with you for a few hours while you recover. ??? Don't make any important decisions, such as financial or legal, on the day after you have sedation. ??? Follow all other instructions from your provider. ?? During your procedural sedation You may have your procedure in a hospital or a clinic. Sedation is done by a trained healthcare provider. In general, you can expect the following: ??? You will be given medicine through an IV line in your arm or hand. Or you may get a shot or take it by mouth. Or you may inhale it through a mask. ??? If you have medicine through an IV, you may feel the effects very quickly. You will start to feel relaxed and drowsy. ??? During the procedure, your heart rate, breathing, and blood pressure will be closely watched. Your breathing and blood pressure may decrease a little. But you will likely notneed help with your breathing. You may get a little extra oxygen. This is done through a mask or some soft plastic prongs under your nose. ??? You will likely be awake the whole time. If you do fall asleep, you should be easy to wake up, if needed. You should feel little or no pain. ??? When your procedure is over, the sedative medicine will be stopped. ?? After your procedural sedation You will start to feel more awake and aware. But you will likely be drowsy for a while afterward. You will be closely watched as you become more alert. You may have a faint memory of the procedure. Or you may not remember it at all. You should be able to go home within 1 to 2 hours after your procedure. Plan to have a trusted adult stay with you for a few hours. This person should make sure your condition is not getting worse. They should also watch for problems, and keep you safe. You may have side effects, such as nausea, fatigue, or unsteadiness for up to 24 hours. You may also feel lightheaded. Tell your healthcare provider if they continue. Don???t drive or operate dangerous machines during the next 24 hours. Also, don't make any important business or personal decisions. And don't drink any alcohol during the next 24 hours. Take extra care when walking and moving, You may be at a higher risk of falling. Follow any instructions you were given for eating and drinking. Be sure to follow all after-care directions. ?? When to call your healthcare provider Have someone call your healthcare provider right away if any of the following occur: ??? Drowsinessthat gets worse ??? Weakness or dizziness that gets worse ??? Repeated vomiting ??? Your speech is slurred, and others cannot understand you ??? Severe or ongoing pain from the procedure, not relieved by the pain medicine (if prescribed) ??? Fever of 100.4?? F (38??C) or higher, or as advised by your healthcare provider ??? New rash ?? Call 911 Have someone call 911 if any of the following occur: ??? Trouble breathing ??? Trouble swallowing ??? Chest pain ??? Loss of consciousness or you can't be awakened ?? Last Reviewed Date: 2021 ?? 4386-8553 [employer]. All rights reserved. This information is not intended as a substitute for professional medical care. Always follow your healthcare professional's instructions. ?? History and physical note * Event Display: History and Physical Hospital Authored Date: EKG study * Event Display: ECG 12-Lead Authored Date: Please click on pdf link to open report * Event Display: ECG 12-Lead Authored Date: Ventricular Rate: 98 BPM Atrial Rate: 178 BPM QRS Duration: 98 ms Q-T Interval: 384 ms QTC Calculation(Bazett): 490 ms R Cumming: 59 degrees T Cumming: 15 degrees Atrial fibrillation Nonspecific ST abnormality Prolonged QT Abnormal ECG No previous ECGs available Confirmed by Hugh Smith ([id number]) on 08/23/2024 11:51:26 AM [place]: Hugh Smith Patient Care team information Care Team Personnel Name: Lane Cat MD Position: [facility] Physician (General Medicine) Member Role: PCP Care Team Related Persons Name: OFE ELLISON Name: REDDY ELLISON Name: ELISA MEDELLIN Insurance Providers Guarantor name: NEERU MEDELLIN Health Plan Information #: 1 Payer: MEDICARE PART B OUTPT Member Number: [id number] Policy Number: NA Group Number: NA Health Plan Information #: 2 Payer: [facility] Member Number: [id number] Policy Number: NA Group Number: [id number]
--- OUTSIDE RECORDS SUMMARY | 2024-08-29 13:24 | XMS_ITS | Encounter Summary ---
Author Organization [facility] Address [address] [facility] [address] [place] [address] Phone Care Team Providers Care Education Counselor Name Role Phone Nitin Rodríguez MD Unavailable [phone] Lane Cat MD Unavailable [phone] Escobar Khan MD Unavailable [phone] Jose Gomez MD Unavailable [phone] Judson Garay MD Unavailable Momo De Los Santos MD Unavailable Lane Cat MD Primary Care Provider + Lane Cat MD Unavailable [phone] Lane Cat MD Primary Care Provider + Lane Cat MD Unavailable [phone] Unknown, Unknown Primary Care Provider Winston Perez MD Primary Care Provider [phone] Ritika Doe OD Unavailable Brandon Boland MD Unavailable [phone] Brandon Boland MD Unavailable [phone] Winston Carter MD Unavailable [phone] Encounter Details Date Type Department Care Team (Late st Contact Info) Description 2018 Procedure Pass [facility], [facility] - [address] [place] [address] Social History Tobacco Use Types Packs/Day Years Used Date Smoking Tobacco: Every Day Smokeless Tobacco: Never Alcohol Use Standard Drinks/Week Comments No 0 (1 standard drink = 0.6 oz pur e alcohol) Sex and Gender Information Value Date Recorded Sex Assigned at Male 07/29/2020 1:10 PM EST Gender Identity Male 06/06/2020 12:38 PM EST Sexual Orientation Straight 07/29/2020 1: 10 PM EST documented as of this encounter Plan of Treatment Upcoming Encounters Date Type Department Care Team (Late st Contact Info) Description 10/05/2024 10:00 AM EDT Office Visit [facility] [address] [place] [address] Lane Fay MD [address] [place] [phone] 10/24/2024 11:30 AM EDT Appointment [facility] Medicine [address] [place] [address] Winston Carter MD [address] [place] [address] 01/16/2025 9:10 AM EDT Office Visit [facility] [address] [place] [address] [place] [address] Gerry Marcos DO [address] [place] [address] 02/06/2025 11:00 AM EDT [facility] [address] [place] [address] Winston Carter MD [address] [place] [address] documented as of this encounter Visit Diagnoses Not on filedocumented in this encounter Care Teams Education Counselor Relationship Specialty Start Date End Date Lane Cat MD [address] [facility], [facility] [address] [place] [address] [email or web address] PCP - General 04/07/17 03/22/18 Lane Cat MD [address] [place] [address] [place] [phone] [email or web address] PCP - General Family Medicine 03/23/18 01/09/20 Unknown, MD Lisa [address] [place] [address] [place] [address] PCP - General 01/10/20 01/11/20 Winston Carter MD [address] [place] [address] [email or web address] PCP - General Internal Medicine 01/12/20 Nitin Rodríguez MD [address] [address] [email or web address] Historical LMR Provider 04/06/17 06/29/21 Lane Cat MD [address] [place] [address] [place] [address] [email or web address] Historical LMR Provider 04/06/17 08/28/22 Escobar Khan MD [address] [address] Historical LMR Provider 04/06/17 06/29/21 Jose Gomez MD [address] [place] [address], [place] [address] [email or web address] Historical LMR Provider 04/06/17 06/29/21 Judson Garay MD [address] [place] [address] [email or web address] Historical LMR Provider 04/06/17 08/28/22 Momo De Los Santos MD [facility], [address] [place] [address] [email or web address] Historical LMR Provider 04/06/17 06/29/21 Lane Cat MD [address] [place] [address] [address] [place] [address] [email or web address] Insurance Assigned Provider 10/24/17 04/02/19 Lane Cat MD [address] [place] [address] [address] [place] [address] [email or web address] Insurance Assigned Provider 09/28/19 09/29/20 Ritika Doe OD Javon Gallardo [place] Optometry 03/22/20 Brandon Boland MD Javon Gallardo [place] [email or web address] Gastroenterology 06/18/20 08/28/22 Brandon Boland MD [address] [place] [address] Dr Kaya [place] [email or web address] Gastroenterology 06/28/20 08/28/22 [place] Carter MD [address] [place] [address] [email or web address] Insurance Assigned Provider 09/26/23 documented as of this encounter Additional Source Comments The information contained in this document represents components of the legal health record. It is not the complete legal health record[facility]
--- OUTSIDE RECORDS SUMMARY | 2024-08-29 13:24 | XMS_ITS | Encounter Summary ---
Author Organization [facility] Address [address] [facility] [address] [place] [address] Phone Care Team Providers Care Story Reader Name Role Phone Nitin Rodríguez MD Unavailable [phone] Lane Cat MD Unavailable [phone] Escobar Khan MD Unavailable [phone] Jose Gomez MD Unavailable [phone] Judson Garay MD Unavailable Momo De Los Santos MD Unavailable [phone] Lane Cat MD Primary Care Provider + Lane Cat MD Unavailable [phone] Lane Cat MD Primary Care Provider + Lane Cat MD Unavailable [phone] Unknown, Unknown Primary Care Provider Winston Perez MD Primary Care Provider [phone] Ritika Doe OD Unavailable Brandon Boland MD Unavailable +[phone] Brandon Boland MD Unavailable +[phone] Winston Cartre MD Unavailable [phone] Reason for Referral * MRI/CAT Scan - Closed Specialty Diagnoses / Procedures Referred By Contac t Referred To Contact Radiology Diagnoses Lumbar radiculopathy Procedures MRI Lumbar Spine Kvng Gregory PA [address] [place] [address] Referral ID Status Reason Start Date Expiration Date Visits Re quested Visits Authorized [id number] Closed 07/30/2017 09/28/2017 1 1 Encounter Details Date Type Department Care Team (Latest Contact Info) Description 07/30/2017 Ancillary Orders Virtual Department [address] [place] [address] Kvng Gregory PA [address] [place] [address] [email or web address] Lumbar radiculopathy Social History Tobacco Use Types Packs/Day Years [...] Description 10/05/2024 10:00 AM EDT Office Visit [facility] [address] [place] [address] [address] [address] Fay MD [address] [place] [address] 10/24/2024 11:30 AM EDT Appointment [facility] [address] [place] [address] Winston Carter MD 40 [place] [address] 01/16/2025 9:10 AM EDT Office Visit [facility] [address] [place] [address] Gerry Marcos DO 22 [place] [address] 02/06/2025 11:00 AM EDT Appointment [facility] Internal Medicine [address] [place] [address] Winston Carter MD [address] [place] [address] [email or web address] documented as of this encounter Results * MRI LUMBAR SPINE (BONE) WITHOUT CONTRAST (08/05/2017 11:17 AM EST) Anatomical Region Laterality Modality L-spine Magnetic Resonan ce 08/05/2017 11:2 4 AM EST Impressions 08/05/2017 11:38 AM EST 1. No appreciable change in moderate broad disc bulge and tiny right paramedian radial annular tear at L3-4 since 2017. 2. No other focal disc protrusion or annular tear. 3. Minimal central and right foraminal stenosis at L4-5. POS - [id number] Narrative 08/05/2017 11:38 AM EST TECHNIQUE: 1.5 Sharon high-field MRI scanner. ?? Sagittal T1, T2 and STIR, axial T1 and T2 sequences . Compared to the limited sagittal T2 only exam from 2017 FINDINGS: Vertebral bodies remain well-aligned. No worrisome marrow changes. Normal conus position and appearance. T11-L2: Negligible broad disc bulge. No focal protrusion or stenosis. L2-3: Normal disc. No bulge or protrusion nor stenosis. L3-4: Moderate broad disc bulge. Tiny focal right paramedian radial annular tear, not appreciably changed from February. No focal disc protrusion. No stenosis. L4-5: Minimal broad disc bulge. No focal protrusion. Moderately prominent posterior ligamentous hypertrophy but minimal central and right foraminal stenosis. L5-S1: Negligible broad disc bulge. No focal protrusion or stenosis. Procedure Note Lane Jaramillo MD - 08/05/2017 TECHNIQUE: 1.5 Sharon high-field MRI scanner. Sagittal T1, T2 and STIR, axial T1 and T2 sequences . Compared to the limited sagittal T2 only exam from 2017 FINDINGS: Vertebral bodies remain well-aligned. No worrisome marrow changes. Normal conus position and appearance. T11-L2: Negligible broad disc bulge. No focal protrusion or stenosis. L2-3: Normal disc. No bulge or protrusion nor stenosis. L3-4: Moderate broad disc bulge. Tiny focal right paramedian radialannular tear, not appreciably changed from February. No focal discprotrusion. No stenosis. L4-5: Minimal broad disc bulge. No focal protrusion. Moderately prominentposterior ligamentous hypertrophy but minimal central and right foraminalstenosis. L5-S1: Negligible broad disc bulge. No focal protrusion or stenosis. IMPRESSION: 1. No appreciable change in moderate broad disc bulge and tiny rightparamedian radial annular tear at L3-4 since 2017. 2. No other focal disc protrusion or annular tear. 3. Minimal central and right foraminal stenosis at L4-5. POS - [id number] Kvng RICE IMFlores MR XSPECIALTY documented in this encounter Visit Diagnoses Diagnosis Lumbar radiculopathy Thoracic or lumbosacral neuritis or radiculitis, unspecified Lumbar radiculopathy Thoracic or lumbosacral neuritis or radiculitis, unspecified documented in this encounter Care Teams Story Reader Relationship Specialty Start Date End Date Lane Cat MD [address] [place] [address], [facility] [address] [place] [address] [email or web address] PCP - General 04/07/17 03/22/18 Lane Cat MD [address] [place] [address] [address] [place] [address] [email or web address] PCP - General Family Medicine 03/23/18 01/09/20 iLsa, MD Lisa [address] [place] [address] [address] [place] PCP - General 01/10/20 01/11/20 Winston Carter MD [address] [place] [address] [email or web address] PCP - General Internal Medicine 01/12/20 Nitin Rodríguez MD [address] [address] [email or web address] Historical LMR Provider 04/06/17 06/29/21 Lane Cat MD [address] [place] [address] [address] [place] [address] [email or web address] Historical LMR Provider 04/06/17 08/28/22 Escobar Khan MD [address] [address] [email or web address] Historical LMR Provider 04/06/17 06/29/21 Jose Gomez MD [address] SMITH [address] [place] [address] [email or web address] Historical LMR Provider 04/06/17 06/29/21 Judson Garay MD [address] SMITH [address] [place] [address] [email or web address] Historical LMR Provider 04/06/17 08/28/22 Momo De Los Santos MD 22 [facility], [address] [place] [address] [email or web address] Historical LMR Provider 04/06/17 06/29/21 Lane Cat MD [address] [place] [address] Dr [address] [place] [address] [email or web address] Insurance Assigned Provider 10/24/17 04/02/19 Lane Cat MD [address] [place] [address] [address] [place] [address] [email or web address] Insurance Assigned Provider 09/28/19 09/29/20 Ritika Doe OD [address] [place] [address] [place] [address] Optometry 03/22/20 Brandon Boland MD [address] [place] [address] [place] [address] [email or web address] Gastroenterology 06/18/20 08/28/22 Brandon Boland MD [address] [place] [address] [place] [address] [email or web address] G[facility] 06/28/20 08/28/22 Winston Carter MD [address] [place] [address] [email or web address] Insurance Assigned Provider 09/26/23 documented as of this encounter Additional Source Comments The information contained in this document represents components of the legal health record. It is not the complete legal health record.[facility]
--- OUTSIDE RECORDS SUMMARY | 2024-08-29 13:24 | XMS_ITS | Encounter Summary ---
Author Organization [facility] Address [address] [facility] [address] [place] [address] Phone Care Team Providers Care Shim Plug Cutter Name Role Phone Nitin Rodríguez MD Unavailable [phone] Lane Cat MD Unavailable [phone] Escobar Khan MD Unavailable [phone] Jose Gomez MD Unavailable [phone] Judson Garay MD Unavailable Momo De Los Santos MD Unavailable [phone] Lane Cat MD Primary Care Provider + Lane Cat MD Unavailable [phone] Lane Cat MD Primary Care Provider + Lane Cat MD Unavailable [phone] Unknown, Unknown Primary Care Provider Winston Perez MD Primary Care Provider [phone] Ritika Doe OD Unavailable Brandon Boland MD Unavailable +[phone] Brandon Boland MD Unavailable [phone] Winston Carter MD Unavailable [phone] Reason for Referral * MRI/CAT Scan - Closed Specialty Diagnoses / Procedures Referred By Contac t Referred To Contact Radiology Diagnoses Low back pain radiating down leg Procedures MRI Lumbar Spine Kvng Gregory PA [address] [place] [address] Referral ID Status Reason Start Date Expiration Date Visits Re quested Visits Authorized [id number] Closed 03/16/2018 05/15/2018 1 1 Encounter Details Date Type Department Care Team (Late st Contact Info) Description 2018 Ancillary Orders Virtual Department 30 [place] [address] Kvng Gregory PA [address] [place] [address] [email or web address] Low back pain radiating down leg Social History Tobacco Use Types Packs/Day Years [...] Description 10/05/2024 10:00 AM EDT Office Visit [facility] [address] [place] [address] [address] [address] Fay MD [address] [place] [address] 10/24/2024 11:30 AM EDT Appointment [facility] 40 [place] [address] Winston Carter MD 40 [place] [address] 01/16/2025 9:10 AM EDT Office Visit [facility] 22 [place] [address] Gerry Marcos, DO 22 [place] [address] 02/06/2025 11:00 AM EDT Appointment [facility] Internal Medicine [address] [place] [address] Winston Carter MD 40 [place] [address] documented as of this encounter Results * MRI LUMBAR SPINE (BONE) WITHOUT CONTRAST (03/26/2018 2:58 PM EDT) Anatomical Region Laterality Modality L-spine Magnetic Resonan ce 03/26/2018 4:29 PM EDT Impressions 03/26/2018 4:38 PM EDT 1. Increasing central and left paramedian focal disc protrusion at L3-4 displacing the emerging left nerve root. 2. New moderate-sized far lateral right foraminal disc protrusion at L4-5 displacing the peripheral right nerve root. POS - [id number] Narrative 03/26/2018 4:38 PM EDT TECHNIQUE: 1.5 Sharon high-field MRI scanner. ?? Sagittal T1, T2 and STIR, axial T1 and T2 sequences . Compare MRI 08/05/2017 FINDINGS: Well aligned vertebral bodies. No worrisome marrow changes. Normal conus position and appearance. T11-L2: Very minimal broad disc bulge at all levels. No focal protrusion or stenosis. Overall unchanged. L2-3: No disc bulge, protrusion or narrowing. No stenosis. L3-4: Significant increase in now moderate-size midline and left paramedian focal disc protrusion deforming the thecal sac and displacing the emerging left nerve root. No significant stenosis. L4-5: Stable minimal broad disc bulge. Moderate-sized far-lateral right foraminal focal disc protrusion is new displacing the peripheral root.. No significant stenosis. L5-S1: Stable minimal broad disc bulge. No focal protrusion or stenosis. Procedure Note Lane Jaramillo MD - 03/26/2018 TECHNIQUE: 1.5 Sharon high-field MRI scanner. Sagittal T1, T2 and STIR, axial T1 and T2 sequences . Compare MRI 08/05/2017 FINDINGS: Well aligned vertebral bodies. No worrisome marrow changes. Normal conus position and appearance. T11-L2: Very minimal broad disc bulge at all levels. No focal protrusionor stenosis. Overall unchanged. L2-3: No disc bulge, protrusion or narrowing. No stenosis. L3-4: Significant increase in now moderate-size midline and leftparamedian focal disc protrusion deforming the thecal sac and displacingthe emerging left nerve root. No significant stenosis. L4-5: Stable minimal broad disc bulge. Moderate-sized far-lateral rightforaminal focal disc protrusion is new displacing the peripheral root.. Nosignificant stenosis. L5-S1: Stable minimal broad disc bulge. No focal protrusion or stenosis. IMPRESSION: 1. Increasing central and left paramedian focal disc protrusion at L3- 4displacing the emerging left nerve root. 2. New moderate-sized far lateral right foraminal disc protrusion at L4- 5displacing the peripheral right nerve root. POS - [id number] Kvng RICE IMFlores MR XSPECIALTY documented in this encounter Visit Diagnoses Diagnosis Low back pain radiating down leg Low back pain radiating down leg documented in this encounter Care Teams Shim Plug Cutter Relationship Specialty Start Date End Date Lane Cat MD [address] [place] [address], [facility] [address] [place] [address] [email or web address] PCP - General 04/07/17 03/22/18 Lane Cat MD [address] [place] [address] 2[address] [place] [address] [email or web address] PCP - General Family Medicine 03/23/18 01/09/20 Unknown, Lisa, MD [address] [place] [address] [place] [address] [place] [address] PCP - General 01/10/20 01/11/20 Winston Carter MD [address] [place] [address] [email or web address] PCP - General Internal Medicine 01/12/20 Nitin Rodríguez MD [address] [place] [address] [email or web address] Historical LMR Provider 04/06/17 06/29/21 Lane Cat MD [address] [place] [address] 2[address] [place] [address] [email or web address] Historical LMR Provider 04/06/17 08/28/22 Escobar Khan MD [address] [address] [email or web address] Historical LMR Provider 04/06/17 06/29/21 Jose Gomez MD [address] [place] [address] [email or web address] Historical LMR Provider 04/06/17 06/29/21 Judson Garay MD [address] [place] [address] [email or web address] Historical LMR Provider 04/06/17 08/28/22 Momo De Los Santos MD [address] [place], [place] [address] [address] [email or web address] Historical LMR Provider 04/06/17 06/29/21 Lane Cat MD [address] [place] [address] Dr [address] [place] [address] [email or web address] Insurance Assigned Provider 10/24/17 04/02/19 Lane Cat MD [address] [place] [address] Dr [address] [place] [address] [email or web address] Insurance Assigned Provider 09/28/19 09/29/20 Ritika Doe OD [address] [place] [address] [place] [address] Optometry 03/22/20 Brandon Boland MD [address] [place] [address] [place] [address] [email or web address] [email or web address] 06/18/20 08/28/22 [place] [address] [email or web address] Gastroenterology 06/28/20 08/28/22 Winston Carter MD [address] [place] [address] [email or web address] Insurance Assigned Provider 09/26/23 documented as of this encounter Additional Source Comments The information contained in this document represents components of the legal health record. It is not the complete legal health record.[facility]
--- OUTSIDE RECORDS SUMMARY | 2024-08-29 13:24 | XMS_ITS | Encounter Summary ---
Author Organization [facility] Address [address] [facility] [address] [place] [address] Phone Care Team Providers Care Faceter Name Role Phone Nitin Rodríguez MD Unavailable [phone] Lane Cat MD Unavailable [phone] Escobar Khan MD Unavailable [phone] Jose Gomez MD Unavailable [phone] Judson Garay MD Unavailable Momo De Los Santos MD Unavailable Lane Cat MD Primary Care Provider + Lane Cat MD Unavailable [phone] Lane Cat MD Primary Care Provider + Lane Cat MD Unavailable [phone] Unknown, Unknown Primary Care Provider Winston Perez MD Primary Care Provider [phone] Ritika Doe OD Unavailable Brandon Boland MD Unavailable [phone] Brandon Boland MD Unavailable [phone] Winston Carter MD Unavailable [phone] Encounter Details Date Type Department Care Team (Late st Contact Info) Description 07/30/2017 Procedure Pass [facility], [address] [place] [address] Social History Tobacco Use Types Packs/Day Years [...] PM EST documented as of this encounter Last Filed Vital Signs Vital Sign Reading Time Taken Comments Blood Pressure - - Pulse - - Temperature - - Respiratory Rate - - Oxygen Saturation - - Inhaled Oxygen Concentration - - Weight 127 kg (280 lb) 07/31/2017 2:01 PM EST Height 175.3 cm (5' 9 ) 07/31/2017 2:01 PM EST Body Mass Index 39.87 07/31/2017 2:01 PM EST documented in this encounter Plan of Treatment Upcoming Encounters Date Type Department Care Team (Late st Contact Info) Description 10/05/2024 10:00 AM EDT Office Visit [facility] [address] [place] [address] [address] [address] Fay MD [address] [place] [address] 10/24/2024 11:30 AM EDT Appointment [facility] Internal Medicine [address] [place] [address] Winston Carter MD 40 [place] [address] 01/16/2025 9:10 AM EDT Office Visit [facility] [address] [place] [address] Gerry Marcos DO [address] [place] [address] 02/06/2025 11:00 AM EDT Appointment [facility] Internal Medicine 40 [place] [address] Winston Carter MD 40 [place] [address] [email or web address] documented as of this encounter Visit Diagnoses Not on filedocumented in this encounter Care Teams Faceter Relationship Specialty Start Date End Date Lane Cat MD [address] [place] [address], [address] [place] [address] PCP - General 04/07/17 03/22/18 Lane Cat MD [address] [place] [address] [place] [address] [email or web address] PCP - General Family Medicine 03/23/18 01/09/20 Unknown, MD Lisa [address] [place] [address] [place] [address] PCP - General 01/10/20 01/11/20 Winston Carter MD [address] [place] [address] [email or web address] PCP - General Internal Medicine 01/12/20 Nitin Rodríguez MD [address] [place] [address], [address] [place] [address] [email or web address] Historical LMR Provider 04/06/17 06/29/21 Lane Cat MD [address] [place] [address] [place] [address] [email or web address] Historical LMR Provider 04/06/17 08/28/22 Escobar Khan MD 22 [facility], [facility] [[email or web address] [address] [place] [address] [email or web address] Historical LMR Provider 04/06/17 06/29/21 Jose Gomez MD [address] [place] [address]ITH [address] [place] [address] [email or web address] Historical LMR Provider 04/06/17 06/29/21 Judson Garay MD [address] [place] [address] [place] [address] [email or web address] Historical LMR Provider 04/06/17 08/28/22 Momo De Los Santos MD 22 [facility], [address] [address] [email or web address] Historical LMR Provider 04/06/17 06/29/21 Lane Cat MD [address] [place] [address] [place] [address] [email or web address] Insurance Assigned Provider 10/24/17 04/02/19 Lane Cat MD [address] [place] [address] [place] [address] [email or web address] Insurance Assigned Provider 09/28/19 09/29/20 Ritika Doe OD [address] [place] [address] [place] [address] Optometry 03/22/20 Brandon Boland MD [address] [place] [address] [email or web address] Gastroenterology 06/18/20 08/28/22 Brandon Boland MD [address] [place] [address] [email or web address] Gastroenterology 06/28/20 08/28/22 Winston Carter MD [address] [place] [address] [email or web address] Insurance Assigned Provider 09/26/23 documented as of this encounter Additional Source Comments The information contained in this document represents components of the legal health record. It is not the complete legal health record.[facility]
--- OUTSIDE RECORDS SUMMARY | 2024-08-29 13:26 | XMS_ITS | Encounter Summary ---
Author Organization [facility] Address [address] [facility] [address] [place] [address] Phone Care Team Providers Care Field Manager Name Role Phone Nitin Rodríguez MD Unavailable [phone] Lane Cat MD Unavailable [phone] Escobar Khan MD Unavailable [phone] Jose Gomez MD Unavailable [phone] Judson Garay MD Unavailable Momo De Los Santos MD Unavailable [phone] Lane Cat MD Unavailable [phone] Winston Carter MD Primary Care Provider [phone] Ritika Doe OD Unavailable Brandon Boland MD Unavailable [phone] Brandon Boland MD Unavailable [phone] Winston Carter MD Unavailable [phone] Encounter Details Date Type Department Care Team (Late st Contact Info) Description 07/04/2020 Procedure Pass [facility] Endoscopy Admitting Dept Virtual Department [address] [place] [address] Social History Tobacco Use Types Packs/Day Years Used Date Smoking Tobacco: Every Day Cigarettes 0.5 51.2 Started: 1971 Smokeless Tobacco: Never Comments:3-5 cigs a day Alcohol Use Standard Drinks/Week Comments No 0 (1 standard drink = 0.6 oz pur e alcohol) Child or Family Care Answer Date Record ed Do you have problems with on e of the following making it difficult for you to work, study, or receive health care? No 09/27/2018 Education Answer Date Recorded Are you interested in help w ith more adult education (for example, completing high school, GED, job training, learning the Bahamian language, technical skills, or developing parenting skills)? No 09/27/2018 Are you concerned about learning? Not on file 09/27/2018 Not on file 09/27/2018 Not on file 09/27/2018 Food Answer Date Recorded Within the past 6 months we worried whether our food would run out before we got money to buy more. Never True 09/27/2018 Within the past 6 months the food we bought just didn't last and we didn't have enough money to get more. Never True 9 Paying for Meds Answer Date Recorded Do you have trouble paying for medicines? No 09/27/2018 Paying Utility Bills Answer Date Record ed Do you have trouble paying your heating or elect ricity bill? No 09/27/2018 Transportation Answer Date Recorded Has the lack of transportati on kept you from medical appointments or from getting medications? No 09/27/2018 Sex and Gender Information Value Date Recorded Sex Assigned at Male 07/29/2020 1:10 PM EST Gender Identity Male 06/06/2020 12:38 PM EST Sexual Orientation Straight 07/29/2020 1: 10 PM EST documented as of this encounter Plan of Treatment Upcoming Encounters Date Type Department Care Team (Late st Contact Info) Description 10/05/2024 10:00 AM EDT Office Visit [facility] [address] [place] [address] Dr Alicea [address] [place] [address] Lane Fay MD [address] [place] [address] 10/24/2024 11:30 AM EDT Appointment [facility] [place] [facility] [address] [place] [address] Winston Carter MD [address] [place] [address] 01/16/2025 9:10 AM EDT Office Visit [facility] [address] [place] [address] Gerry Marcos DO [address] [place] [address] [email or web address] 02/06/2025 11:00 AM EDT Appointment [facility] Internal Medicine [address] [place] [address] Winston Carter MD [address] [place] [address] [email or web address] documented as of this encounter Visit Diagnoses Not on filedocumented in this encounter Additional Health Concerns Assessment Noted Time PHQ-9 Depression Total Score: 8 05/16/20 19 9:43 AM EST PHQ-2 Depression Total Score: 2 06/25/19 21 11:28 AM EST documented as of this encounter Care Teams Field Manager Relationship Specialty Start Date End Date Winston Carter MD [address] [place] [address] [email or web address] PCP - General Internal Medicine 01/12/20 Nitin Rodríguez MD [address] [place] [address], [facility] [address] [place] [address] [email or web address] Historical LMR Provider 04/06/17 06/29/21 Lane Cat MD [address] [place] [address] Dr [address] [place] [address] [email or web address] Historical LMR Provider 04/06/17 08/28/22 Escobar Khan MD [address] [facility], [address] [place] [address] [email or web address] Historical LMR Provider 04/06/17 06/29/21 Jose Gomez MD [address] [place] [address] [email or web address] Historical LMR Provider 04/06/17 06/29/21 Judson Garay MD [address] ALICEA [address] [place] [address] [email or web address] Historical LMR Provider 04/06/17 08/28/22 Momo De Los Santos MD 22 [facility], [facility] [address] [place] [address] [email or web address] Historical LMR Provider 04/06/17 06/29/21 Lane Cat MD [address] [place] [address] [place] [address] [email or web address] Insurance Assigned Provider 09/28/19 09/29/20 Ritika Doe OD Javon [place] Optometry 03/22/20 Brandon Boland MD Javon [place] [email or web address] Gastroenterology 06/18/20 08/28/22 Brandon Boland MD [address] [place] [address] Dr Kirkpatrick [place] Gastroenterology 06/28/20 08/28/22 Winston Carter MD [address] [place] [address] [email or web address] Insurance Assigned Provider 09/26/23 documented as of this encounter Additional Source Comments The information contained in this document represents components of the legal health record. It is not the complete legal health record.[facility]
--- OUTSIDE RECORDS SUMMARY | 2024-08-29 13:26 | XMS_ITS | Encounter Summary ---
Author Organization [facility] Address [address] [place] [address] Phone Care Team Providers Care Facilities Maintenance Assistant Name Role Phone Winston Carter MD Primary Care Provider [phone] Ritika Doe OD Unavailable Winston Carter MD Unavailable [phone] Encounter Details Date Type Department Care Team (Late st Contact Info) Description 07/04/2024 Orders Only [facility] [place] [facility] [address] [place] [address] Provider, MD Tino [address] [place], [place] [id number] Social History Tobacco Use Types Packs/Day Years Used Date Smoking Tobacco: Every Day Cigarettes 0.5 51.2 Started: 1971 Smokeless Tobacco: Never Comments:10 cigarettes per d ay Alcohol Use Standard Drinks/Week Comments Yes 0 (1 standard drink = 0.6 oz pur e alcohol) 6 beers a year Child or Family Care Answer Date Record ed Do you have problems with on e of the following making it difficult for you to work, study, or receive health care? No 09/27/2018 Education Answer Date Recorded Are you interested in more education? Not on avril e 10/17/2022 Are you concerned about learning? Not on file 10/17/2022 No 10/17/2022 No 10/17/2022 Food Answer Date Recorded Within the past [...] appointments or from getting medications? No 09/27/2018 Digital Access Answer Date Recorded No 11/12/2022 No 11/12/2022 Reliable internet access at home? Not on file 11/12/2022 Device with a working camera? Not on file Intimate Partner Violence Answer Date R ecorded Denied Basic Needs Not on file 01/25/2024 In the past 12 months have y ou been in a relationship with a person who hurts, threatens, or tries to control you? No 01/25/2024 Worried food would run out Not on file 01/24 In the past 12 months have y ou been in a relationship with a person who hurts, threatens, or tries to control you? No 01/25/2024 Sex and Gender Information Value Date Recorded Sex Assigned at Male 07/29/2020 1:10 PM EST Gender Identity Male 06/06/2020 12:38 PM EST Sexual Orientation Straight 07/29/2020 1: 10 PM EST documented as of this encounter Plan of Treatment Upcoming Encounters Date Type Department Care Team (Late st Contact Info) Description 10/05/2024 10:00 AM EDT Office Visit [facility] [address] [place] [address] Dr Alicea [address] [place] [address] Lane Fay MD [address] [place] [address] 10/24/2024 11:30 AM EDT Appointment [facility] [address] [place] [address] Winston Carter MD [address] [place] [address] 01/16/2025 9:10 AM EDT Office Visit [facility] [place] [address] Gerry Marcos DO [address] [place] [address] 02/06/2025 11:00 AM EDT Appointment [facility] Internal Medicine [address] [place] [address] Winston Carter MD [address] [place], [place] [id number] documented as of this encounter Procedures Procedure Name Priority Date/Time Associated Diagnosis Comments DIABETES EYE EXAM FOR RESULT ENTRY ONLY Routine 07/04/2024 5:15 PM EST documented in this encounter Results * DIABETES EYE EXAM FOR RESULT ENTRY ONLY (07/04/2024 5:15 PM EST) Historical Provider MD ZOEY Corona documented in this encounter Visit Diagnoses Not on filedocumented in this encounter Additional Health Concerns Assessment Noted Time PHQ-9 Depression Total Score: 7 01/25/20 24 7:46 PM EDT PHQ-2 Depression Total Score: 3 01/25/20 24 7:46 PM EDT documented as of this encounter Care Teams Facilities Maintenance Assistant Relationship Specialty Start Date End Date Winston Carter MD [address] [place] [address] PCP - General Internal Medicine 01/12/20 Ritika Doe OD [address] [place] [address] [place] [address] Optometry 03/22/20 Winston Carter MD [address] [place] [address] [email or web address] Insurance Assigned Provider 09/26/23 documented as of this encounter Additional Source Comments The information contained in this document represents components of the legal health record. It is not the complete legal health record.[facility]
--- OUTSIDE RECORDS SUMMARY | 2024-08-29 13:26 | XMS_ITS | Encounter Summary ---
Author Organization [facility] Address [address] [facility] [address] [place] [address] Phone Care Team Providers Care Experiential Therapist Name Role Phone Winston Carter MD Primary Care Provider [phone] Ritika Doe OD Unavailable Wniston Carter MD Unavailable [phone] Reason for Referral * Outpatient Procedure - New Request Specialty Diagnoses / Procedures Referred By Val wolff Referred To Contact Diagnoses Other cardiomyopathy Procedures Adult Echo TTE Key Mathews PA-C [address] [place] [address] Email: [email or web address] Referral ID Status Reason Start Date Expiration Date V isits Requested Visits Authorized [id number] New Request 07/19/2024 1 1 Reason for Visit * Outpatient Procedure - New Request Specialty Diagnoses / Procedures Referred By Val wolff Referred To Contact Diagnoses Other cardiomyopathy Procedures Adult Echo TTE Key Mathews PA-C [address] [place] [address] Email: [email or web address] Referral ID Status Reason Start Date Expiration Date V isits Requested Visits Authorized [id number] New Request 07/19/2024 1 1 Encounter Details Date Type Department Care Team (Latest Contact Info) Description 08/15/2024 2:39 PM EST - 08/15/2024 11:59 PM EST Hospital Encounter [facility] [address] [place] [address] Key Mathews PA-C [address] [place] [address] [email or web address] [email or web address] Disposition: Home or Self Care Social History Tobacco Use Types Packs/Day Years [...] PM EST documented as of this encounter Medications at Time of Discharge Medication Sig Dispensed Refills Start Date End Date blood sugar diagnostic (TRUE METRIX GLUCOSE TEST STRIP) Strp stripsIndications: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 90 tablet 2 07/18/2024 06/24/2025 carvedilol (COREG) 25 MG tabletIndications:Med ication refill TAKE 1 TABLET BY MOUTH TWICE DAILY WITH MEALS 180 tablet 3 07/25/2024 digoxin (LANOXIN) 125 mcg tabletIndications:Con gestive heart failure TAKE ONE TABLET BY MOUTH EVERY DAY 30 tablet 11 10/14/2021 docosahexaenoic acid/epa (FISH OIL ORAL)Indications:for joint health Take 1,200 mg by mouth daily. Indications: for joint health inulin (PREBIOTIC FIBER ORAL) Take 1 Capful by mouth daily. Up to twice daily as needed 10/01/2021 lancets 28 gauge MiscIndications:Type 2 diabetes mellitus with diabetic polyneuropathy, without long-term current use of insulin 1 each by Miscellaneous route every morning. 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 360 tablet 2 07/18/2024 multivit-min/FA/lycop en/lutein (MEN 50 PLUS MULTIVITAMIN ORAL) Take 1 capsule by mouth daily. semaglutide (OZEMPIC) 1 mg/dose (4 mg/3 mL) subcutaneous injection penIndications:Type 2 diabetes mellitus with diabetic polyneuropathy, without long-term current use of insulin,Type 2 diabetes mellitus without complication, without long-term current use of insulin Inject 1 mg under the skin every 7 days. 9 mL 1 07/18/2024 sertraline (ZOLOFT) 100 MG tabletIndications:Med ication refill take two tablets by mouth every day 180 tablet 3 01/18/2024 simvastatin (ZOCOR) 40 MG tabletIndications:Hyp erlipidemia LDL goal <100 take one tablet by mouth every day in the evening 90 tablet 3 01/18/2024 XARELTO 15 mg TabIndications:Chroni c atrial fibrillation take one tablet by mouth every day 90 tablet 3 04/06/2024 oxyCODONE HCl 10 mg TabIndications:Chroni c right-sided low back pain with right-sided sciatica Take 1 tablet (10 mg total) by mouth every 4 (four) hours as needed (chronic right sided low back pain). 84 tablet 08/10/2024 08/17/2024 documented as of this encounter Plan of Treatment Upcoming Encounters Date Type Department Care Team (Late st Contact Info) Description 10/05/2024 10:00 AM EDT Office Visit [facility] [address] [address] [address] Fay MD [address] [place] [address] 10/24/2024 11:30 AM EDT Appointment [facility] [place] [facility] [address] [place] [address] Winston Carter MD [address] [place] [address] 01/16/2025 9:10 AM EDT Office Visit [facility] [address] [place] [address] Gerry Marcos DO [address] [place] [address] 02/06/2025 11:00 AM EDT Appointment [facility] [place] [facility] [address] [place] [address] Winston Carter MD [address] [place] [address] [email or web address] documented as of this encounter Procedures Procedure Name Priority Date/Time Associated Diagnosis Comments TTE COMPREHENSIVE Routine 08/15/2024 3:1 7 PM EST Other cardiomyopathy documented in this encounter Results * TTE COMPREHENSIVE (08/15/2024 3:17 PM EST) Body Surface Area 2.33 m2 Height 174 cm Weight 123 kg Systolic BP 142 mmHg Diastolic BP 92 mmHg Interventricular Septum Thickness 12 6 - 11 mm Left Ventricle Internal Diameter End Diastole 54 42 - 58 mm Left Ventricle Internal Diameter End Systole 37 <40 mm Left Ventricular Outflow Tract Diameter 21.0 mm Left Ventricular Posterior Wall Thickness 12 6 - 11 mm Ejection Fraction 68 50 - 75 Percent Left Atrium Dimension Anterior-Posterior 57 15 - 40 mm Aortic Valve Mean Gradient 4 mmHg Aortic Valve Time Velocity Integral 258.0 mm Aortic Valve Peak Velocity 137.0 cm/s Aortic Valve Peak Gradient 8 mmHg Aortic Sinus Diameter 34 <40 mm Ascending Aorta Diameter 37 <36 mm Inferior Vena Cava Diameter 18 <21 mm Right Ventricle Basal Diameter 44 25 - 41 mm Tricuspid Valve Peak Velocity 2.1 m/s Raw LV EF% 53 % Relative Wall Thickness 0.44 0.22 - 0.42 Aortic Valve Prosthetic Peak Gradient 8 mmHg Aortic Valve Prosthetic Mean Gradient 4 mmHg Aortic Valve Sinus Index by BSA 15 mm/m2 Aorta Sinus Index by Height 1.95 cm/m Aorta Sinus CSA index by Height 5.22 cm2/m Ascending Aorta Index 16 mm/m2 Asc Aorta CSA Index by Height 6.18 cm2/m Right Ventricle to Right Atrium Pressure Gradient 18 mmHg Right Ventricle Peak Systolic Pressure (Assuming RAP 10) 28 mmHg MGB CV ECHO TV RVSP (ASSUMING RAP OF 5) 23 mmHg RVSP (Exclusive of RAP) 18 mmHg Ascending Aorta Index 16 mm Aortic Sinus Index 15 mm Ascending Aorta Diameter 16 mm Aortic Valve Sinus Index 1 15 20 - 32 mm AO ASC DIAM BSA INDEX 15.88 Left Atrial Volume Index 47 16 - 34 mL/m2 Aortic Valve Peak Velocity 1.4 m/s Left Ventricular Outflow Tract Velocity 1.1 m/s Left Atrial Volume 110 mL Left Atrial Volume Index by Height 63 mL/m LVOT VTI REST 18.0 cm Anatomical Region Laterality Modality Heart Ultrasound Narrative 08/15/2024 4:16 PM EST Images from the original result were not included. Left ventricular size is normal with mild concentric hypertrophy. ??There is segmental wall motion seen in the anterolateral wall and anteroseptal wall both are hypokinetic. ??Overall ejection fraction is about 40%. Right ventricular is mildly dilated with normal systolic function. Aortic valve is tricuspid. There is no aortic stenosis and no aortic regurgitation Mitral valve is normal: has no mitral stenosis and trace mitral regurgitation Tricuspid valve is normal: has trace regurgitation and no stenosis PASP could not be calculated No pericardial effusion seen. Compared to 09/30/2023 wall motion abnormality and reduction of EF to 40% is new Left Ventricle The left ventricle is normal in size. There is mild concentric hypertrophy. There is mildly reduced left ventricular systolic function. The LV ejection fraction is 45-50% (visually estimated). LV diastolic function was not assessed. Right Ventricle The right ventricle is mildly dilated. There is normal right ventricular systolic function. Left Atrium The left atrium is moderately dilated. Right Atrium The right atrium is moderately dilated. The IVC is normal in size with normal inspiratory collapse. Mitral Valve The mitral valve appears normal. There is no mitral stenosis. There is trace mitral regurgitation. Tricuspid Valve The tricuspid valve appears normal. There is no tricuspid stenosis. There is trace tricuspid regurgitation. Aortic Valve The aortic valve is tricuspid. There is no aortic stenosis. The aortic valve peak velocity is 1.4 m/s. The peak and mean aortic valve gradients are 8 mmHg and 4 mmHg respectively. There is no aortic regurgitation. The visualized portions of the thoracic aorta appear normal in size. Pulmonic Valve The pulmonic valve appears normal. There is no pulmonic stenosis. There is trace pulmonic regurgitation. Pericardium There is no pericardial effusion. General Findings The image quality was fair (3). Technique(s) used in the evaluation: Multiplane, Color flow Doppler, Spectral Doppler and Epiaortic scan. Comparison Findings Compared to prior TTE report on 09/30/2023, IAS/IVS The interatrial septum appears normal. There is no evidence of patent foramen ovale (PFO). The interventricular septum appears normal. Key Mathews PA-C CV ECHO ORDERABLES documented in this encounter Visit Diagnoses Diagnosis Other cardiomyopathy documented in this encounter Additional Health Concerns Assessment Noted Time PHQ-9 Depression Total Score: 7 01/25/20 7:46 PM EDT PHQ-2 Depression Total Score: 3 01/25/20 7:46 PM EDT documented as of this encounter Care Teams Experiential Therapist Relationship Specialty Start Date End Date Winston Carter MD [address] [place] [address] [email or web address] PCP - General Internal Medicine 01/12/20 Ritika Doe OD [address] [place] [address] [place] [address] Optometry 03/22/20 Winston Carter MD [address] [place] [address] [email or web address] Insurance Assigned Provider 09/26/23 documented as of this encounter Additional Source Comments The information contained in this document represents components of the legal health record. It is not the complete legal health record.[facility]
--- OUTSIDE RECORDS SUMMARY | 2024-08-29 13:26 | XMS_ITS | Encounter Summary ---
Author Organization [facility] Address [address] [place] [address] Phone Care Team Providers Care Agriculture Teacher Name Role Phone Winston Carter MD Primary Care Provider [phone] Ritika Doe OD Unavailable Winston Carter MD Unavailable Reason for Visit * Reason Onset Date Comments Medication Refill 08/17/2024 CSRP Encounter Details Date Type Department Care Team (Late st Contact Info) Description 08/17/2024 Refill [facility] [place] [facility] [address] [place], [place] [phone] Winston Carter MD [address] [place] [address] [email or web address] Medication Refill (CSRP) Social History Tobacco Use Types Packs/Day Years [...] PM EST documented as of this encounter Progress Notes * Adrian Hamilton MA - 08/17/2024 8:51 AM EST Images from the original note were not included. CSRP Oxycodone 10mg x 14 days Due: Today Received: 1 week ago Patient reminder Kaycee Sharma MA [facility] [place] See TE 08/10/24 RX Due 08/10/24 Rx Care Gap Status - Instructions for Clinical Staff (prescriber discretion applies): > Please check PDMP/MassPAT for all controlled substances requested. Visit Info Last visit: 07/04/2024 Winston Carter MD - Internal Medicine [facility] > Requested f/u: Not specified Upcoming visit: 10/24/2024 Winston Carter MD - Internal Medicine [facility] ACTIONS TAKEN BY Adrian Hamilton MA - Checked PDMP/MassPAT Opioid Rx Protocol - oxycodone HCl Controlled substance renewals are at prescriber discretion. Pain management profile/toxicology testing (urine/saliva) may be considered annually or more frequently if clinically indicated. In-person visit in the past 2 years: Yes (Last in-person visit: 07/04/2024 (Winston Carter MD - [facility])) Visit in the past 4 months: Yes No benzodiazepine on medication list Opioid agreement on file: Yes Pain management profile/toxicology testing in past 12 months:Last collected 07/04/24 documented in this encounter Plan of Treatment Upcoming Encounters Date Type Department Care Team (Late st Contact Info) Description 10/05/2024 10:00 AM EDT Office Visit [facility] [address] [place] [address] [address] [address] Fay MD [address] [place] [address] 10/24/2024 11:30 AM EDT Appointment [facility] [place] [facility] [address] [place] [address] Winston Carter MD [address] [place] [address] 01/16/2025 9:10 AM EDT Office Visit [facility] [address] [place] [address] Gerry Marcos DO [address] [place] [address] juan 02/06/2025 11:00 AM EDT Appointment [facility] [address] [place] [address] Winston Carter MD [address] [place], [place] [phone] [email or web address] documented as of this encounter Visit Diagnoses Diagnosis Chronic right-sided low back pain with right-sided sciatica documented in this encounter Additional Health Concerns Assessment Noted Time PHQ-9 Depression Total Score: 7 01/25/20 7:46 PM EDT PHQ-2 Depression Total Score: 3 01/25/20 7:46 PM EDT documented as of this encounter Care Teams Agriculture Teacher Relationship Specialty Start Date End Date Winston Carter MD [address] [place] [address] PCP - General Internal Medicine 01/12/20 Ritika Doe OD [address] [place] [address] [place] [address] Optometry 03/22/20 Winston Carter MD [address] [place] [address] Insurance Assigned Provider 09/26/23 documented as of this encounter Additional Source Comments The information contained in this document represents components of the legal health record. It is not the complete legal health record.[facility]
--- OUTSIDE RECORDS SUMMARY | 2024-08-29 13:26 | XMS_ITS | Encounter Summary ---
Author Organization [facility] Address [address] [place] [address] Phone Care Team Providers Care Enrollment Management Director Name Role Phone Winston Carter MD Primary Care Provider [phone] Ritika Doe OD Unavailable Winston Carter MD Unavailable [phone] Encounter Details Date Type Department Care Team (Late st Contact Info) Description 08/17/2024 Orders Only [facility] [address] [place] [address] Nitin Rodríguez MD 22 [facility], [address] [address] [email or web address] Abnormal nuclear cardiac imaging test (Primary Dx) Social History Tobacco Use Types Packs/Day Years [...] Description 10/05/2024 10:00 AM EDT Office Visit [facility] Danilo Alicea [address] [place] [address] Lane Fay MD [address] [place] [address] 10/24/2024 11:30 AM EDT Appoint[facility] [address] [place] [address] Winston Carter MD [address] [place], [place] [phone] 01/16/2025 9:10 AM EDT Office Visit [facility] 22 [place] [address] Gerry Marcos DO 22 [place], [place] [phone] 02/06/2025 11:00 AM EDT Appointment [facility] Internal Medicine [address] [place], [place] [phone] Winston Carter MD [address] [place], [place] [phone] [email or web address] documented as of this encounter Results * (ABNORMAL) PT-INR (08/22/2024 1:20 PM EST) Pathologist [facility] PT 13.2(H) 10.2 - 12.9 sec [facility] INR 1.2(H) 0.9 - 1.1 [facility] Comment:Therapeutic range fo r oral Vitamin K antagonists: 2.0-3.5 Blood 08/22/2024 1:20 PM EST 08/22/2024 1:23 PM EST Mable Caicedo DNP LAB BLOOD ORDERABL ES [facility] [address] [place], [place] [phone] * (ABNORMAL) Basic metabolic panel (08/22/2024 1:20 PM EST) [facility] SODIUM 142 133 - 146 mmol/L [facility] CHLORIDE 105 96 - 108 mmol/L [facility] POTASSIUM 4.3 3.3 - 5.1 mmol/L [facility] CO2 27 21 - 35 mmol/L [facility] BUN 21(H) 6 - 19 mg/dL [facility] CREATININE 1.60(H) 0.5 - 1.5 mg/dL [facility] GLUCOSE 106(H) 70 - 99 mg/dL [facility] CALCIUM 9.8 8.4 - 10.3 mg/dL [facility] EGFR 47(L) >59 mL/min/1.7 3m2 [facility] Comment:Estimated glomerular filtration rate calculated using the CKD-EPI refit equation. ANION GAP 14 10 - 20 mmol/L [facility] Blood 08/22/2024 1:20 PM EST 08/22/2024 1:23 PM EST Mable Caicedo DNP LAB BLOOD ORDERABL ES [facility] [address] [place] [address] * (ABNORMAL) CBC and differential (08/22/2024 1:20 PM EST) WBC 8.23 4.00 - 11.00 K/uL [facility] RBC 5.06 4.50 - 5.90 M/uL [facility] HGB 16.1 13.5 - 17.5 g/dL [facility] HCT 48.1 41.0 - 53.0 % [facility] PLT 186 150 - 450 K/uL [facility] MCV 95.1 80.0 - 100.0 fL [facility] MCH 31.8(H) 27.0 - 31.0 pg [facility] MCHC 33.5 32.0 - 36.0 g/dL [facility] RDW 12.4 11.5 - 14.5 % [facility] MPV 10.0 8.4 - 12.0 fL [facility] NRBC 0.00 0.00 /100 WBCs [facility] ABSOLUTE NRBC 0.00 0.00 K/uL [facility] DIFF METHOD Auto [facility] NEUTS 65.0 48.0 - 76.0 % [facility] LYMPHS 23.0 18.0 - 41.0 % [facility] MONOS 8.5 4.0 - 11.0 % [facility] EOS 2.4 0.0 - 5.0 % [facility] BASOS 0.7 0.0 - 1.5 % [facility] Granulocytes, immature (%) 0.4 0.0 - 0.9 % [facility] ABSOLUTE NEUTS 5.35 1.92 - 7.60 K/uL [facility] ABSOLUTE LYMPHS 1.89 0.72 - 4.10 K/uL [facility] ABSOLUTE MONOS 0.70 0.16 - 1.10 K/uL [facility] ABSOLUTE EOS 0.20 0.00 - 0.50 K/uL [facility] ABSOLUTE BASOS 0.06 0.00 - 0.15 K/uL [facility] Granulocytes, immature 0.03 0.00 - 0.09 K/uL [facility] Blood 08/22/2024 1:20 PM EST 08/22/2024 1:23 PM EST Mable Caicedo DNP LAB BLOOD ORDERABL ES Performing Organization Address City/State/[facility] Co de Phone Number [address] [address] documented in this encounter Visit Diagnoses Diagnosis Abnormal nuclear cardiac imaging test- Primary documented in this encounter Additional Health Concerns Assessment Noted Time PHQ-9 Depression Total Score: 7 01/25/20 24 7:46 PM EDT PHQ-2 Depression Total Score: 3 01/25/20 24 7:46 PM EDT documented as of this encounter Care Teams Enrollment Management Director Relationship Specialty Start Date End Date Winston Carter MD [address] [place] [address] [email or web address] PCP - General Internal Medicine 01/12/20 Ritika Doe OD [address] [place] [address] [place] [address] Optometry 03/22/20 Winston Carter MD [address] [place] [address] [email or web address] Insurance Assigned Provider 09/26/23 documented as of this encounter Additional Source Comments The information contained in this document represents components of the legal health record. It is not the complete legal health record.[facility]
--- OUTSIDE RECORDS SUMMARY | 2024-08-29 13:27 | XMS_ITS | Encounter Summary ---
Author Organization [facility] Address [address] [facility] [address] [place] [address] Phone Care Team Providers Care Park Activities Coordinator Name Role Phone Winston Carter MD Primary Care Provider [phone] Ritika Doe OD Unavailable Winston Carter MD Unavailable [phone] Encounter Details Date Type Department Care Team (Latest Contact Info) Description 08/17/2024 2:00 PM EST Office Visit [facility] [address] [place] [address] Mable Caicedo, VINCE [address] [address] [email or web address] Chronic atrial fibrillation (Primary Dx); Essential hypertension; Dyspnea on exertion Social History Tobacco Use Types Packs/Day Years [...] Sign Reading Time Taken Comments Blood Pressure 128/82 08/17/2024 1:42 PM EST Pulse 76 08/17/2024 1:42 PM EST Temperature - - Respiratory Rate - - Oxygen Saturation 98% 08/17/2024 1:42 PM EST Inhaled Oxygen Concentration - - Weight - - Height 173.5 cm (5' 8.31 ) 08/17/2024 1:42 PM ES T Body Mass Index - - documented in this encounter Progress Notes * Von Qureshi DO - 08/17/2024 2:00 PM EST Subject Line: Provider Attestation I have reviewed the notes, assessments, and/or procedures performed by Mable, I concur with her/his documentation of Neeru Hathaway. documented in this encounter Miscellaneous Notes * Assessment & Plan Note - Mable Caicedo DNP - 08/17/2024 2:13 PM EST Associated Problem(s): Dyspnea on exertion Due to his complaints of dyspnea on exertion he did undergo an echocardiogram which does show reduction in his ejection fraction at 40%, in addition to a wall motion abnormality. He also underwent a stress test in June which showed an LV dysfunction with an ejection fraction 27%. Due to his risk factors of being a diabetic and a smoker we are going to go ahead and do a cardiac catheterization based on these test results at [facility]. I did speak with Dr. Pierre who is in agreement with plan. We are going to add aspirin 81 mg daily to his regimen. No other changes will be made to his medication. * Assessment & Plan Note - Mable Caicedo DNP - 08/17/2024 2:11 PM EST Associated Problem(s): Essential hypertension Blood pressure is controlled today 120/82. He is encouraged follow low-sodium diet. SBP goal less than 130/80. He will remain on carvedilol 25 mg twice daily. He recently started on Ozempic after switching from Trulicity with the hopes of improving his weight loss. * Assessment & Plan Note - Mable Caicedo DNP - 08/17/2024 2:10 PM EST Associated Problem(s): Chronic atrial fibrillation He is on Xarelto 15 mg daily reduced for renal. He does see Dr. England. He is rate controlled on digoxin 125 mcg daily, carvedilol 25 mg twice daily. documented in this encounter Plan of Treatment Upcoming Encounters Date Type Department Care Team (Late st Contact Info) Description 10/05/2024 10:00 AM EDT Office Visit [facility] [address] [place] [address] [address] [address] Fay MD [address] [place] [address] 10/24/2024 11:30 AM EDT Appointment [facility] Internal Medicine [address] [place], [place] [phone] Winston Carter MD [address] [place] [address] 01/16/2025 9:10 AM EDT Office Visit [facility] [address] [place] [address] Gerry Marcos DO [address] [place] [address] 02/06/2025 11:00 AM EDT Appointment [facility] [address] [place] [address] Winston Carter MD [address] [place] [address] documented as of this encounter Visit Diagnoses Diagnosis Chronic atrial fibrillation- Primary Atrial fibrillation Essential hypertension Unspecified essential hypertension Dyspnea on exertion Other dyspnea and respiratory abnormality documented in this encounter Additional Health Concerns Assessment Noted Time PHQ-9 Depression Total Score: 7 01/25/20 24 7:46 PM EDT PHQ-2 Depression Total Score: 3 01/25/20 24 7:46 PM EDT documented as of this encounter Care Teams Park Activities Coordinator Relationship Specialty Start Date End Date Winston Carter MD [address] [place] [address] [email or web address] PCP - General Internal Medicine 01/12/20 Ritika Doe OD [address] [place] [address] [place] [address] Optometry 03/22/20 Winston Carter MD [address] [place] [address] [email or web address] Insurance Assigned Provider 09/26/23 documented as of this encounter Additional Source Comments The information contained in this document represents components of the legal health record. It is not the complete legal health record.[facility]
--- OUTSIDE RECORDS SUMMARY | 2024-08-29 13:29 | XMS_ITS | Encounter Summary ---
Author Organization [facility] Address [address] [place] [address] Phone Care Team Providers Care Aerial Photograph Interpreter Name Role Phone Winston Carter MD Primary Care Provider [phone] Ritika Doe OD Unavailable Winston Carter MD Unavailable [phone] Reason for Visit * Reason Onset Date Comments Medication Refill 08/10/2024 CSRP Oxycodone 10mg x 14 days Encounter Details Date Type Department Care Team (Late st Contact Info) Description 08/10/2024 Refill [facility] [place] [facility] [address] [place] [address] Winston Carter MD [address] [place] [address] [email or web address] Medication Refill (CSRP Oxycodone 10mg x 14 days) Social History Tobacco Use Types Packs/Day Years [...] as of this encounter Progress Notes * Kaycee Sharma MA - 08/10/2024 1:37 PM EST Images from the original note were not included. W: CSRP Oxycodone 10mg x 14 days Due: Today Received: 1 week ago Patient reminder Adrian Hamilton MA [facility] SCRAPE GATHERER checked also contacted [facility] to verify Rx has not been filled Rx Care Gap Status - Instructions for Clinical Staff (prescriber discretion applies): > Please check PDMP/MassPAT for all controlled substances requested. Visit Info Last visit: 07/04/2024 Winston Carter MD - Internal Medicine [facility] > Requested f/u: Not specified Upcoming visit: 10/24/2024 Winston Carter MD - Internal Medicine [facility] ACTIONS TAKEN BY Kaycee Sharma MA - Checked PDMP/MassPAT Opioid Rx Protocol [...] Pain management profile/toxicology testing in past 12 months: No documented in this encounter Plan of Treatment Upcoming Encounters Date Type Department Care Team (Late st Contact Info) Description 10/05/2024 10:00 AM EDT Office Visit [facility] [address] [place] [address] [address] [address] Fay MD [address] [place] [address] 10/24/2024 11:30 AM EDT Appointment [facility] [address] [place] [address] Winston Carter MD [address] [place] [address] 01/16/2025 9:10 AM EDT Office Visit [facility] [address] [place] [address] [place] [address] Gerry Marcos DO [address] [place] [address] 02/06/2025 11:00 AM EDT Appointment [facility] Internal Medicine [address] [place] [address] Winston Carter MD [address] [place] [address] [email or web address] documented as of this encounter Visit Diagnoses Diagnosis Chronic right-sided low back pain with right-sided sciatica documented in this encounter Additional Health Concerns Assessment Noted Time PHQ-9 Depression Total Score: 7 01/25/20 7:46 PM EDT PHQ-2 Depression Total Score: 3 01/25/20 7:46 PM EDT documented as of this encounter Care Teams Aerial Photograph Interpreter Relationship Specialty Start Date End Date Winston Carter MD [address] [place] [address] PCP - General Internal Medicine 01/12/20 Ritika Doe OD [address] [place] [address] [place] [address] Optometry 03/22/20 Winston Carter MD [address] [place] [address] Insurance Assigned Provider 09/26/23 documented as of this encounter Additional Source Comments The information contained in this document represents components of the legal health record. It is not the complete legal health record.[facility]
--- OUTSIDE RECORDS SUMMARY | 2024-08-29 13:29 | XMS_ITS | Encounter Summary ---
Author Organization [facility] Address [address] [place] [address] Phone Care Team Providers Care Souvenir Assembler Name Role Phone Winston Carter MD Primary Care Provider [phone] Ritika Doe OD Unavailable Winston Carter MD Unavailable [phone] Encounter Details Date Type Department Care Team (Late st Contact Info) Description 07/19/2024 Procedure Pass Echo [facility] [address] [place] [address] Social History Tobacco Use Types Packs/Day Years [...] Description 10/05/2024 10:00 AM EDT Office Visit [facility] [address] [place] [address] [address] [address] Fay MD [address] [place] [address] 10/24/2024 11:30 AM EDT Appointment [facility] [place] [facility] [address] [place] [address] Winston Carter MD [address] [place], [place] 01/16/2025 9:10 AM EDT Office Visit [facility] [address] [place] [address] Gerry Marcos DO [address] [place] [address] 02/06/2025 11:00 AM EDT Appointment [facility] Internal Medicine [address] [place], [place] [phone] Winston Carter MD [address] [place], [place] [phone] documented as of this encounter Visit Diagnoses Not on filedocumented in this encounter Additional Health Concerns Assessment Noted Time PHQ-9 Depression Total Score: 7 01/25/20 24 7:46 PM EDT PHQ-2 Depression Total Score: 3 01/25/20 24 7:46 PM EDT documented as of this encounter Care Teams Souvenir Assembler Relationship Specialty Start Date End Date Winston Carter MD [address] [place] [address] PCP - General Internal Medicine 01/12/20 Ritika Doe OD [address] [place] [address] [place] [address] Optometry 03/22/20 Winston Carter MD [address] [place] [address] Insurance Assigned Provider 09/26/23 documented as of this encounter Additional Source Comments The information contained in this document represents components of the legal health record. It is not the complete legal health record.[facility]
--- OUTSIDE RECORDS SUMMARY | 2024-08-29 13:29 | XMS_ITS | Encounter Summary ---
Author Organization [facility] Address [address] [place] [address] Phone Care Team Providers Care Diabetes Clinical Manager Name Role Phone Winston Carter MD Primary Care Provider [phone] Ritika Doe OD Unavailable Winston Carter MD Unavailable [phone] Encounter Details Date Type Department Care Team (Latest Contact Info) Description 08/22/2024 1:20 PM EST - 08/22/2024 11:59 PM EST Hospital Encounter [facility] [address] [place] [address] Winston Carter MD [address] [place] [address] [email or web address] Discharge Disposition: Home or Self Care Social [...] Sig Dispensed Refills Start Date End Date aspirin 81 MG EC tablet Take 1 tablet (81 mg total) by mouth daily. 30 tablet 11 08/17/2024 blood sugar diagnostic (TRUE METRIX GLUCOSE TEST [...] ORAL) Take 1 capsule by mouth daily. oxyCODONE HCl 10 mg TabIndications:Chroni c right-sided low back pain with right-sided sciatica Take 1 tablet (10 mg total) by mouth every 4 (four) hours as needed (chronic right sided low back pain). 84 tablet 08/25/2024 09/08/2024 semaglutide (OZEMPIC) 1 mg/dose (4 mg/3 mL) [...] mouth every day 90 tablet 3 04/06/2024 documented as of this encounter Plan of Treatment Upcoming Encounters Date Type Department Care Team (Late st Contact Info) Description 10/05/2024 10:00 AM EDT Office Visit [facility] [address] [address] [address] Fay MD [address] [place] [address] 10/24/2024 11:30 AM EDT Appointment [facility] Internal Medicine [address] [place] [address] Winston Carter MD [address] [place] [address] [phone] 01/16/2025 9:10 AM EDT Office Visit [facility] [address] [place] [address] Gerry Marcos DO [address] [place] [address] 02/06/2025 11:00 AM EDT Appointment [facility] Internal Medicine [address] [place] [address] Winston Carter MD [address] [place] [address] [phone] documented as of this encounter Procedures Procedure Name Priority Date/Time Associated Diagnosis Comments PT-INR Routine 08/22/2024 1:20 PM EST Abnormal nuclear cardiac imaging test CBC AND DIFFERENTIAL Routine 08/22/2024 1:20 PM EST Abnormal nuclear cardiac imaging test BASIC METABOLIC PANEL Routine 08/22/2024 1:20 PM EST Abnormal nuclear cardiac imaging test documented in this encounter Results * (ABNORMAL) CBC and differential (08/22/2024 1:20 PM EST) WBC 8.23 4.00 - 11.00 K/uL [facility] RBC 5.06 4.50 - 5.90 M/uL [facility] HGB 16.1 13.5 - 17.5 g/dL [facility] HCT 48.1 41.0 - 53.0 % [facility] PLT 186 150 - 450 K/uL [facility] MCV 95.1 80.0 - 100.0 fL [facility] MCH 31.8(H) 27.0 - 31.0 pg [facility] MCHC 33.5 32.0 - 36.0 g/dL [facility] RDW 12.4 11.5 - 14.5 % [facility] MPV 10.0 8.4 - 12.0 fL [facility] NRBC 0.00 0.00 /100 WBCs [facility] ABSOLUTE NRBC 0.00 0.00 K/uL [facility] DIFF METHOD Auto [facility] NEUTS 65.0 48.0 - 76.0 % [facility] LYMPHS 23.0 18.0 - 41.0 % [facility] MONOS 8.5 4.0 - 11.0 % [facility] EOS 2.4 0.0 - 5.0 % [facility] BASOS 0.7 0.0 - 1.5 % [facility] Granulocytes, immature (%) 0.4 0.0 - 0.9 % [facility] ABSOLUTE NEUTS 5.35 1.92 - 7.60 K/uL [facility] ABSOLUTE LYMPHS 1.89 0.72 - 4.10 K/uL [facility] ABSOLUTE MONOS 0.70 0.16 - 1.10 K/uL [facility] ABSOLUTE EOS 0.20 0.00 - 0.50 K/uL [facility] ABSOLUTE BASOS 0.06 0.00 - 0.15 K/uL [facility] Granulocytes, immature 0.03 0.00 - 0.09 K/uL [facility] Blood 08/22/2024 1:20 PM EST 08/22/2024 1:23 PM EST Mable Caicedo [facility] LAB BLOOD ORDERABL ES Performing Organization Address [facility] Co de Phone Number [address] [address] * (ABNORMAL) Basic metabolic panel (08/22/2024 1:20 PM EST) SODIUM 142 133 - 146 mmol/L [facility] CHLORIDE 105 96 - 108 mmol/L [facility] POTASSIUM 4.3 3.3 - 5.1 mmol/L [facility] CO2 27 21 - 35 mmol/L [facility] BUN 21(H) 6 - 19 mg/dL [facility] CREATININE 1.60(H) 0.5 - 1.5 mg/dL [facility] GLUCOSE 106(H) 70 - 99 mg/dL [facility] CALCIUM 9.8 8.4 - 10.3 mg/dL [facility] EGFR 47(L) >59 mL/min/1.7 3m2 [facility] Comment:Estimated glomerular filtration rate calculated using the CKD-EPI refit equation. ANION GAP 14 10 - 20 mmol/L [facility] Blood 08/22/2024 1:20 PM EST 08/22/2024 1:23 PM EST Mable Bellamyoux [facility] LAB BLOOD ORDERABL ES Performing Organization Address [facility] Co de Phone Number [address] [address] * (ABNORMAL) PT-INR (08/22/2024 1:20 PM EST) PT 13.2(H) 10.2 - 12.9 sec [facility] INR 1.2(H) 0.9 - 1.1 [facility] Comment:Therapeutic range fo r oral Vitamin K antagonists: 2.0-3.5 Blood 08/22/2024 1:20 PM EST 08/22/2024 1:23 PM EST Mable Bellamyoux DNP LAB BLOOD ORDERABL ES [facility] [address] [place] [address] documented in this encounter Visit Diagnoses Diagnosis Abnormal nuclear cardiac imaging test documented in this encounter Additional Health Concerns Assessment Noted Time PHQ-9 Depression Total Score: 7 01/25/20 7:46 PM EDT PHQ-2 Depression Total Score: 3 01/25/20 7:46 PM EDT documented as of this encounter Care Teams Diabetes Clinical Manager Relationship Specialty Start Date End Date Winston Carter MD [address] [place] [address] [email or web address] PCP - General Internal Medicine 01/12/20 Ritika Doe OD [address] [place] [address] [place] [address] Optometry 03/22/20 Winston Carter MD [address] [place] [address] [email or web address] Insurance Assigned Provider 09/26/23 documented as of this encounter Additional Source Comments The information contained in this document represents components of the legal health record. It is not the complete legal health record.[facility]
--- OUTSIDE RECORDS SUMMARY | 2024-08-29 13:29 | XMS_ITS | Encounter Summary ---
Author Organization [facility] Address [address] [place] [address] Phone Care Team Providers Care Customer Order Clerk Name Role Phone Winston Carter MD Primary Care Provider [phone] Ritika Doe OD Unavailable Winston Carter MD Unavailable [phone] Reason for Visit * Reason Comments Medication Refill Encounter Details Date Type Department Care Team (Late st Contact Info) Description 08/10/2024 Refill [facility] [place] Internal Medicine [address] [place], [place] [phone] Winston Carter MD [address] [place] [address] [email or web address] Medication Refill Social History Tobacco Use Types Packs/Day Years [...] as of this encounter Progress Notes * Andreea Horner - 08/10/2024 1:20 PM EST Received call from patient, reports he is at his pharmacy now for miner pick. Reports he normally doesnot have to call in as it is sent in every 2 weeks. Request a corral be placed on this documented in this encounter Plan of Treatment Upcoming Encounters Date Type Department Care Team (Late st Contact Info) Description 10/05/2024 10:00 AM EDT Office Visit [facility] [address] [address] [place] [address] Lane Fay MD [address] [place] [address] 10/24/2024 11:30 AM EDT Appointment [facility] Internal Medicine [address] [place] [address] Winston Carter MD [address] [place] [phone] 01/16/2025 9:10 AM EDT Office Visit [facility] [address] [place] [address] Gerry Marcos DO [address] [place] [address] 02/06/2025 11:00 AM EDT Appointment [facility] Internal Medicine [address] [place] [address] Winston Carter MD [address] [place] [address] documented as of this encounter Visit Diagnoses Diagnosis Chronic right-sided low back pain with right-sided sciatica documented in this encounter Additional Health Concerns Assessment Noted Time PHQ-9 Depression Total Score: 7 01/25/20 24 7:46 PM EDT PHQ-2 Depression Total Score: 3 01/25/20 24 7:46 PM EDT documented as of this encounter Care Teams Customer Order Clerk Relationship Specialty Start Date End Date Winston Carter MD [address] [place] [address] PCP - General Internal Medicine 01/12/20 Ritika Doe OD [address] [place] [address] [place] [address] Optometry 03/22/20 Winston Carter MD [address] [place] [address] [email or web address] Insurance Assigned Provider 09/26/23 documented as of this encounter Additional Source Comments The information contained in this document represents components of the legal health record. It is not the complete legal health record.[facility]
--- OUTSIDE RECORDS SUMMARY | 2024-08-29 13:29 | XMS_ITS | Data Portability ---
Author Organization [facility], [facility] Address [address] [place] [address] Assessment No assessment recorded. Plan of Treatment Reminders Order Date Submit Date Provider Last Modified By Organization Details Last Modified Time Details Appointments None record ed. Lab None record ed. Referral None record ed. Procedures None record ed. Surgeries None record ed. Imaging None record ed. Medication Orders None record ed. Patient TargetsNo targets recorded. Patient Instructions Encounter Date Encounter Id Patient Instructions Last Modified By Organization Details Last Modified Time 08/30/2015 [id number] Discussed to florencia benítez diabetes under control for healthy eyes. Discussed cataract. Glasses Rx was given. Not available 08/30/2015 09:40:32 08/29/2016 [id number] OTC reading glasses only. Discussed dry eyes and tearing. warm compress prn. Discussed cataract OU. Discussed to keep diabetes under control for healthy eyes. Not available 08/29/2016 10:42:53 09/23/2017 [id number] OTC reading glasses prn. Discussed to keep diabetes undercontrol for healthy eyes. Not available 09/23/2017 09:51:57 09/24/2018 [id number] Quitting Tobacco : Care Instructions Not available 09/24/2018 11:39:08 OTC reading glasses prn. Discussed to use artificial tear prn and d/o smoking prn. Discussed to keep diabetes undercontrol for healthy eyes. Not available 09/24/2018 11:38:53 Reason for Referral None Reported. Results Created Date Observation Date Name Description Value Unit Range Abnormal Flag Note LastModifiedBy Organization Detail LastModifiedTime 05/12/20 08 05/15/2008 micro album in, rando m urine microalbumin 7.6 mg/L 1.3-20 .0 Not Available [address], [address], 08/13/2008 00:29:02 05/12/20 08 05/15/2008 micro album in, rando m urine creatinine, urine 137.8 mg/dL 30.0-1 25.0 high Not Available [address], [address], 08/13/2008 00:29:02 05/12/20 08 05/15/2008 micro album in rando m urine microalb/cre at ratio 5.5 mg/g_ creat 0.0-29 .0 Not Available [address], [address], 08/13/2008 00:29:02 05/12/20 08 05/15/2008 hemog lobin A1C w/ mpg hemoglobin A1C 6.7 % 4.8-6. 0 high goal: <7% in patie nts with diabe bharat Not Available [address], [address], 08/13/2008 00:29:02 05/12/20 08 05/15/2008 hemog lobin A1C w/ mpg estimated average glucose 161.2 mg/dL Not Available [address], [address], 08/13/2008 00:29:02 Result Notes None recorded. Problems Name Problem SNOMED Code Status Onset Date Resolution Date Notes Provider Name and Address Organization Details Recorded Time Mixed hyperlipid emia 536210156 Active 2002 Not Available [facility] 3 03:10:26 Headache 22682687 Active 2002 Not Available [facility] 3 03:10:26 Disorder of tendon of shoulder region 24896585 Completed 200005/11/2013 Not Available [facility] 3 02:02:36 Dyspnea 443171799 Completed 200205/11/2013 Not Available [facility] 3 02:02:45 Benign essential hypertensi on 5620995 Active 2002 Not Available [facility] 3 03:10:26 Atrial fibrillati on 21253771 Active 2006 Not Available [facility] 3 03:10:26 Allergic rhinitis 72213272 Active 2001 Not Available [facility] 3 03:10:26 Dizziness 118660027 Completed 200505/11/2013 Not Available [facility] 3 02:02:08 Hypersomni a with sleep apnea 70690154 Active 2003 Not Available [facility] 3 03:10:26 Acute sinusitis 29095267 Completed 199905/11/2013 Not Available [facility] 3 02:02:20 Major depression , melancholi c type 669464212 Active 2007 Not Available [facility] 3 03:10:26 Contact dermatitis due to plants, except food Completed 200405/11/2013 Not Available [facility] 3 02:02:49 Breathing painful 31574724 Completed 200405/11/2013 Not Available [facility] 3 02:02:56 Acute stress disorder 21493790 Completed 200105/11/2013 Not Available [facility] 3 02:02:47 Common cold 32650451 Completed 200105/11/2013 Not Available [facility] 3 02:00:26 Panic disorder without agoraphobi a 92302716 Active 2001 Not Available [facility] 3 03:10:26 Diabetes mellitus 11478436 Active 2007 Not Available [facility] 3 03:10:26 Injury of knee 076567420 Active 2000 Not Available [facility] 3 03:10:26 Dysphagia 95256877 Active 2003 Not Available [facility] 3 03:10:26 Non-organi c sleep disorder 743423415 Active 2001 Not Available [facility] 3 03:10:26 Type 2 diabetes mellitus without complicati on 334754195 Active 2005 Ritika Doe, OD [address] [place], [address] , [facility] 6 09:40:32 Abnormal weight gain 094605210 Active 2005 Not Available [facility] 3 03:10:26 Acute conjunctiv itis 72367721 Completed 200105/11/2013 Not Available [facility] 3 02:02:28 Sprain of knee and leg Completed 200005/11/2013 Not Available [facility] 3 02:03:04 Uncontroll ed type 2 diabetes mellitus 346382028 Active 2007 Not Available [facility] 3 03:10:26 Morbid obesity 720954023 Active 2006 Not Available [facility] 3 03:10:26 Elevated blood-pres sure reading without diagnosis of hypertensi on 715170550 Active 2002 Not Available [facility] 3 03:10:26 Hyperlipid emia 79266102 Active 2002 Not Available [facility] 3 03:10:26 Hypothyroi dism 70046594 Active 2002 Not Available [facility] 3 03:10:26 Problem Notes None recorded. Procedures Surgical History Date Name Laterality Status Provider Name and Address Organization Details Recorded Time 9 Smoking cessation counseling completed Ritika Doe, OD [address] [place], [address], [facility] 09/24/2018 11:36:11 9 Refraction completed Lauren Burrows [facility] 09/24/2018 11:07:17 8 Refraction completed Ritika Doe, OD [address] [place], [address], [facility] 09/23/2017 09:22:17 7 Refraction completed Tyler Barton [facility] 08/29/2016 09:41:51 6 Refraction completed Ritika Doe, OD [address] [place], [address], [facility] 08/30/2015 09:38:06 Imaging Results None recorded. Procedure Notes None recorded. Medical Equipment None Reported. Allergies No known drug allergies Medications Name Sig Start Date Stop Date Status Note LastModified by Organization Details LastModified Time multivita min tablet 2007 active Take 1.00 tabs daily Not Available Not Available Not Available furosemid e 40 mg tablet TAKE 1 TABLET BY MOUTH TWICE A DAY active Not Available Not Available No t Available metformin 500 mg tablet TAKE 2 TABLETS BY MOUTH TWICE A DAY active Not Available Not Available No t Available carvedilo l 25 mg tablet TAKE 1 TABLET BY MOUTH TWICE A DAY WITH MEALS 09/24 completed Not Available Not Available Not Available methylphe nidate 10 mg tablet TAKE 1 TABLET BY MOUTH TWICE A DAY active Not Available Not Available No t Available methylphe nidate 5 mg tablet TAKE 1 TABLET BY MOUTH TWICE A DAY ON AN EMPTY STOMACH active Not Available Not Available No t Available prednison e 20 mg tablet TAKE 1 TABLET BY MOUTH THREE TIMES A DAY WITH FOOD FOR 6 DAYS 09/24 completed Not Available Not Available Not Available sertralin e 100 mg tablet TAKE 1 TO 1 AND 1/2 TABLETS BY MOUTH ONCE A DAY active Not Available Not Available No t Available simvastat in 40 mg tablet TAKE ONE TABLET BY MOUTH DAILY IN THE EVENING 09/24 completed Not Available Not Available Not Available glimepiri de 1 mg tablet TAKE ONE TABLET BY MOUTH EVERY DAY BEFORE BREAKFAS T active Not Available Not Available No t Available ofloxacin 0.3 % ear drops INSTILL 10 DROPS INTO AFFECTED EAR ONCE A DAY FOR 7 DAYS 09/24 completed Not Available Not Available Not Available erythromy alyssa 5 mg/gram (0.5 %) eye ointment APPLY TO IN EACH EYE TWO TIMES A DAY DIRECTED 09/24 completed Not Available Not Available Not Available Actos 15 mg tablet 08/29 completed Take 1.00 tabs daily Not Available Not Available Not Available lisinopri l 5 mg tablet TAKE ONE TABLET BY MOUTH EVERY DAY active Not Available Not Available No t Available hydrochlo rothiazid e 25 mg tablet 2007 active Take 1.00 tabs daily Not Available Not Available Not Available digoxin 125 mcg (0.125 mg) tablet TAKE 1 TABLET BY MOUTH DAILY active Not Available Not Available No t Available Viagra 100 mg tablet 09/24 completed Take 0.50 tabs as directed as needed Not Available Not Available Not Available diazepam 10 mg tablet TAKE ONE TABLET BY MOUTH THREE TIMES A DAY NEEDED FOR SPASM 09/24 completed Not Available Not Available Not Available ibuprofen 600 mg tablet TAKE ONE TABLET BY MOUTH FOUR TIMES A DAY NEEDED FOR PAIN FOR 10 DAYS active Not Available Not Available No t Available Coumadin 1 mg tablet 08/29 completed Take 1.00 tabs daily Not Available Not Available Not Available atenolol 50 mg tablet 09/24 completed Take 1.50 tabs daily Not Available Not Available Not Available amoxicill in 875 mg-potass ium clavulana te 125 mg tablet TAKE 1 TABLET BY MOUTH EVERY 12 HOURS FOR 10 DAYS 09/24 completed Not Available Not Available Not Available oxycodone 5 mg tablet TAKE 1 TABLET BY MOUTH EVERY 6 HOURS NEEDED FOR PAIN 09/24 completed Not Available Not Available Not Available enoxapari n 100 mg/mL subcutane ous syringe DIRECTED DAILY STARTING 10/5 SUBCUTAN EOUSLY FOR 7 DAYS 09/24 completed Not Available Not Available Not Available Jantoven 5 mg tablet TAKE ONE TABLET BY MOUTH EVERY DAY active Not Available Not Available No t Available Janumet 50 mg-1,000 mg tablet TAKE TWO TABLETS BY MOUTH EVERY DAY AT NIGHT 09/24 completed Not Available Not Available Not Available Victoza 3-Christopher 0.6 mg/0.1 mL (18 mg/3 mL) subcutane ous pen injector INJECT 1.8MG (0.3ML) SUBCUTAN EOUSLY ONCE DAILY 09/24 completed Not Available Not Available Not Available Vitals None Recorded Social History None recorded. Functional Status None recorded. Mental Status None recorded. Family History Nothing Reported. Medical History No medical history recorded. Immunizations Vaccine Type Date Status Note Provider Nam e and Address Organization Details Recorded Time influenza, unspecified formulation 6 completed Not Available [facility] 05/07/2011 05:21:29 pneumococcal polysaccharide PPV23 6 completed Not Available [facility] 05/07/2011 05:21:29 Past Encounters Encounter ID Performer Location Encounter Start Date Encounter Closed Date Diagnosis/Indication Diagnosis SNOMED-CT Code Diagnosis ICD10 Code Diagnosis Note [id number] [facility] [place] [address] [place] [address] 06/10/2000 10:30:00 07/12/2008 02:02:29 [id number] [facility] [place] [address] [place] [address] 02/15/2001 11:30:00 07/12/2008 02:02:29 [id number] [place] [facility] [address] [place] [address] 04/19/2001 15:00:00 07/12/2008 02:02:29 [id number] [place] [facility] [address] [place] [address] 04/19/2001 00:00:00 07/12/2008 02:02:29 [id number] [facility] [place] [address] [place] [address] 04/19/2001 13:45:00 07/12/2008 02:02:29 [id number] [facility] [place] [address] [place] [address] 12/22/2001 15:55:16 07/12/2008 02:02:29 [id number] [facility] [place] [address] [place] [address] 01/19/2002 16:41:41 07/12/2008 02:02:29 [id number] [facility] [place] [address] [place] [address] 03/08/2002 13:31:28 07/12/2008 02:02:29 [id number] [facility] [place] [address] [place] [address] 03/29/2002 09:15:45 07/12/2008 02:02:29 [id number] [facility] [place] [address] [place] [address] 04/19/2002 09:15:31 07/12/2008 02:02:29 [id number] [facility] [place] [address] [place] [address] 08/31/2002 15:04:53 07/12/2008 02:02:29 [id number] [facility] [place] [address] [place] [address] 10/11/2002 14:21:13 07/12/2008 02:02:29 [id number] [facility] [place] [address] [place] [address] 02/22/2003 11:07:33 07/12/2008 02:02:29 [id number] [facility] [place] [address] [place] [address] 03/08/2003 09:55:54 03/09/2003 15:30:20 [id number] [facility] [place] [address] [place] [address] 04/24/2003 09:30:54 04/24/2003 17:55:17 [id number] [facility] [address] [place] [address] 04/25/2003 07:38:26 04/25/2003 12:26:24 [id number] [facility] [place] [facility] [address] [place] [address] 11/08/2003 07:26:43 11/08/2003 08:27:34 [id number] [facility] [place] [address] [place] [address] 11/15/2003 14:24:15 11/16/2003 09:04:16 [id number] [facility] [place] [address] [place] [address] 02/19/2004 10:46:50 02/19/2004 17:47:17 [id number] [facility] [place] [address] [place] [address] 04/03/2004 13:27:21 04/04/2004 08:11:42 [id number] [facility] [place] [address] [place] [address] 06/25/2004 16:06:40 06/26/2004 10:26:24 [id number] [facility] [place] [address] [place] [address] 03/06/2005 10:11:52 03/07/2005 08:48:10 [id number] [facility] [place] [address] [place] [address] 12/09/2005 10:50:07 12/10/2005 08:05:19 [id number] [facility] [address] [place] [address] 12/09/2005 00:00:00 07/12/2008 02:02:29 [id number] [place] Care, [facility] [address] [place] [address] 12/10/2005 08:37:32 12/10/2005 10:27:18 [id number] Optical, [facility] [address] [place] [address] 12/10/2005 10:23:23 12/10/2005 12:58:06 [id number] [facility] [place] [address] [place] [address] 02/13/2006 15:03:48 03/02/2006 15:04:28 [id number] [facility] [address] [place] [address] 02/13/2006 00:00:00 07/12/2008 02:02:29 [id number] [facility] [place] [address] 03/16/2006 10:36:17 03/16/2006 10:36:24 [id number] [facility] [place] [address] [place] [address] 04/27/2006 09:36:32 04/28/2006 07:45:02 [id number] [facility] , [facility] [address] [place] [address] 04/28/2006 13:28:21 04/28/2006 14:53:24 [id number] [facility] [place] [facility] [place] [address] 04/28/2006 07:50:10 04/28/2006 07:50:14 [id number] [facility] [address] [place] [address] 07/01/2006 08:04:54 07/01/2006 08:04:57 [id number] [facility] [place] [address] [place] [address] 09/21/2006 16:03:22 09/22/2006 07:39:42 [id number] [facility] [address] [place] [address] 09/30/2006 08:04:43 09/30/2006 08:04:47 [id number] [facility] [place] [address] [place] [address] 12/07/2006 14:50:42 12/07/2006 15:19:17 [id number] [facility] [place] [address] [place] [address] 12/10/2006 15:25:03 12/10/2006 16:45:29 [id number] [place] Care, [facility] [address] [place] [address] 12/31/2006 08:12:48 12/31/2006 10:26:33 [id number] [facility] [place] [address] [place] [address] 02/01/2007 15:49:42 02/02/2007 08:40:43 [id number] [facility] [place] [facility] [address] [place] [address] 02/10/2007 11:48:07 02/10/2007 11:48:20 [id number] [facility] [place] [address] [place] [address] 02/10/2007 10:32:31 02/10/2007 14:41:19 [id number] [facility] [place] [facility] [address] [place] [address] 02/10/2007 00:00:00 07/12/2008 02:02:29 [id number] [facility] [place] [address] [place] [address] 02/12/2007 14:11:26 02/12/2007 15:52:58 [id number] [facility] [place] [address] [place] [address] 02/15/2007 10:23:28 02/15/2007 12:06:09 [id number] [facility] [place] [address] [place] [address] 02/19/2007 09:23:59 02/19/2007 11:01:19 [id number] [facility] [place] [address] [place] [address] 02/24/2007 09:39:12 02/24/2007 12:45:31 [id number] [facility] [place] [address] [place] [address] 03/03/2007 09:04:29 03/03/2007 11:54:12 [id number] [facility] [place] [address] [place] [address] 03/10/2007 08:13:06 03/10/2007 09:34:39 [id number] [facility] [address] [place] [address] 04/01/2007 08:20:42 04/01/2007 08:21:36 [id number] [facility] [place] [address] [place], [place] [address] 04/06/2007 08:23:12 07/12/2008 02:02:29 [id number] [facility] [place] [address] [place], [place] [address] 04/15/2007 13:10:39 07/12/2008 02:02:29 [id number] [facility] [place] [address] [place], [place] [address] 04/29/2007 14:11:09 07/12/2008 02:02:29 [id number] [place] [facility] [place] [address] [place], [place] [address] 05/10/2007 14:07:40 07/12/2008 02:02:29 [id number] [facility] [place] [address] [place], [place] [address] 06/08/2007 14:22:41 07/12/2008 02:02:29 [id number] [facility] [place] [address] [place], [place] [address] 07/06/2007 13:48:03 07/12/2008 02:02:29 [id number] [facility] [place] [address] [place], [place] [address] 08/03/2007 13:04:48 07/12/2008 02:02:29 [id number] [facility] [place] [facility] [address] [place] [address] 08/03/2007 13:15:15 08/03/2007 13:15:25 [id number] [facility] [place] [address] [place] [address] 08/13/2007 13:59:14 07/12/2008 02:02:29 [id number] [facility] [place] [address] [place] [address] 09/14/2007 14:47:54 07/12/2008 02:02:29 [id number] [place] [facility] [address] [place] [address] 09/14/2007 16:04:00 09/14/2007 16:04:12 [id number] [place], [facility] [address] [place] [address] 01/04/2008 14:44:24 01/04/2008 15:43:22 [id number] [place] [facility] [address] [place] [address] 01/04/2008 14:35:42 01/04/2008 14:35:49 [id number] [facility] [place] [address] [place] [address] 02/29/2008 13:04:29 07/12/2008 02:02:29 [id number] [facility] [place] [address] [place] [address] 03/13/2008 13:53:48 07/12/2008 02:02:29 [id number] [place] [facility] [address] [place] [address] 03/13/2008 00:00:00 07/12/2008 02:02:29 [id number] [place] [facility] [address] [place] [address] 03/15/2008 08:50:04 03/15/2008 08:50:10 [id number] [facility] [place] [address] [place] [address] 04/14/2008 16:01:55 07/12/2008 02:02:29 [id number] [facility] - [address] [place] [place] [address] 05/12/2008 15:29:02 05/12/2008 15:29:17 [id number] [facility] [place] [address] [place] [address] 05/12/2008 15:31:10 07/12/2008 02:02:29 [id number] Ritika Doe, OD Eye Care, [address] [place] [address] 08/30/2015 08:47:41 08/30/2015 09:38:59 Type 2 diabetes mellitus without complication 848378921 E11.9 Bilateral cataracts 9572 2003 H25.13 Presbyopia 25437411 H52. 4 [id number] Ritika Deo, OD Eye Care, [address] [place] [address] 08/29/2016 09:24:10 08/29/2016 10:55:04 Presbyopia 74560659 H52.4 Bilateral cataracts 9572 2003 H25.13 Type 2 josh betes mellitus without complication 099550970 E11.9 Dry eyes 529527812 H04.1 29 [id number] Ritika Doe, OD Eye Care, [address] [place] [address] 09/23/2017 09:01:50 09/23/2017 10:01:02 Presbyopia 76132605 H52.4 Type 2 josh betes mellitus without complication 446844777 E11.9 [id number] Ritika Doe, OD [facility] Care, [facility] [address] [place] [address] 09/24/2018 10:33:39 09/24/2018 11:43:05 Type 2 diabetes mellitus without complication 350456063 E11.9 Presbyopia 03163437 H52. 4 Pinguecula 87367001 H11. 159 Tobacco user 484409280 Z 72.0 Health Concerns Section Related Observation LastModified by Organization Detai ls LastModified Time None Recorded Concern Status LastModified by Organization Details LastModified Time None Recorded Advance Directives Directive None Recorded Payers Encounter Date Sequence Insurance Name Policy Number Policy Fuller Covered Member ID Fuller Member ID Guarantor Name 05/12/2008 1 [facility] [id number] Ryan Hathaway [id number] Ryan Hathaway 08/30/2015 1 [facility] [id number] Ryan Hathaway [id number] Ryan Hathaway 08/29/2016 1 [facility] [id number] Ryan Hathaway [id number] Ryan Hathaway 09/23/2017 1 [facility] (O) [id number] Ryan Hathaway [id number] Ryan Hathaway 09/24/2018 1 [facility] PRIOR TO 09/20/2022 - [facility] (MEDICAID) Ryan Hathaway [id number] Ryan Hathaway Notes Date Note Type Note Provider Name and Address Organization Details Recorded Time 08/30/2015 text/html Comprehensive Ey e ExamReported bypatient.Quality:1 year exam Context:currently wears glasses Modifying factors:wears glasses for readers only Associated Symptoms:no redness; no itching; no floaters; no dryness Ritika Doe, OD [address] [place] [address], [address], [facility] 08/30/2015 09:42:06 08/29/2016 text/html Comprehensive Ey e ExamReported bypatient.Quality:1 year exam; no blurred vision Location:bilateral Context:currently wears glasses Modifying factors:wears glasses for readers only Associated Symptoms:no redness; no itching; no floaters; no drynessDiabetic Eye ExamReported bypatient.Quality:typ e II diabetes Severity:well controlled; not requiring insulin Duration:10 years history of diabetes Context:no history of retinopathy; normal average blood sugar ; A1C: 6.2 Associated Symptoms:normal vision; no changes on Amsler grid Ritika Doe, OD [address] [place], [address], [facility] 08/29/2016 10:43:04 09/23/2017 text/html Comprehensive Ey e ExamReported bypatient.Quality:1 year exam; no blurred vision Location:bilateral Context:currently wears glasses Modifying factors:wears glasses for readers only Associated Symptoms:no redness; no itching; no floaters; no drynessDiabetic Eye ExamReported bypatient.Quality:typ e II diabetes Severity:well controlled; not requiring insulin Duration:10 years history of diabetes Context:no history of retinopathy; normal average blood sugar ; A1C: 9 Associated Symptoms:normal vision; no changes on Amsler grid Ritika Doe, OD [address] [place], [address], [facility] 09/23/2017 09:55:00 09/24/2018 text/html Comprehensive Ey e ExamReported bypatient.Quality:1 year exam Associated Symptoms:no redness; no itchingDiabetic Eye ExamReported bypatient.Quality:typ e II diabetes Context:no history of retinopathy; A1C: 7.2 Associated Symptoms:normal vision Ritika Doe, OD [address] [place], [address], [facility] 09/24/2018 11:39:56
--- OUTSIDE RECORDS SUMMARY | 2024-08-29 13:30 | XMS_ITS | Encounter Summary ---
Author Organization [facility] Address [address] [address] Phone Care Team Providers Care Speech Pathology Supervisor Name Role Phone Winston Carter MD Primary Care Provider Encounter Details Date Type Department Care Team (Late st Contact Info) Description 08/10/2024 Orders Only [facility] [address] [address] Zhen England MD [address] [address] Stage 3b chronic kidney disease (HCC); Renal osteodystrophy; Type 2 diabetes mellitus with diabetic chronic kidney disease (HCC); Hypertensive chronic kidney disease Social History Tobacco Use Types Packs/Day Years Used Date Smoking Tobacco: Never Assessed Sex and Gender Information Value Date Recorded Sex Assigned at Not on file Legal Sex Male 8:27 AM EST Gender Identity Not on file Sexual Orientation Not on file documented as of this encounter Plan of Treatment Upcoming Encounters Date Type Department Care Team (Late st Contact Info) Description 09/08/2024 2:00 PM EDT [facility] Visit [facility] [address] [address] Zhen England MD [address] [address] documented as of this encounter Visit Diagnoses Diagnosis Stage 3b chronic kidney disease (HCC) Renal osteodystrophy Type 2 diabetes mellitus with diabetic chronic kidney disease (HCC) Hypertensive chronic kidney disease documented in this encounter Care Teams Speech Pathology Supervisor Relationship Specialty Start Date End Date Winston Carter MD [address] [place] [address] PCP - General Internal Medicine 08/15/20 documented as of this encounter
--- OUTSIDE RECORDS SUMMARY | 2024-08-29 13:30 | XMS_ITS | Encounter Summary ---
Author Organization [facility] Address [address] [place] [address] Phone Care Team Providers Care Passenger Service Supervisor Name Role Phone Winston Carter MD Primary Care Provider [phone] Ritika Doe OD Unavailable Winston Carter MD Unavailable [phone] Encounter Details Date Type Department Care Team (Late st Contact Info) Description 02/01/2024 Procedure Pass [facility], Ct Scan - [facility] [address] [place] [address] Social History Tobacco Use Types Packs/Day Years Used Date Smoking Tobacco: Every Day Cigarettes 0.5 51.2 Started: 1971 Smokeless Tobacco: Never Comments:10 cigarettes per d ay Alcohol Use Standard Drinks/Week Comments No 0 [...] enough money to get more. Never True 04/08/201 9 Paying for Meds Answer Date Recorded [...] Description 10/05/2024 10:00 AM EDT Office Visit [facility] Danilo Alicea [address] [place] [address] Lane Fay MD [address] [place] [address] 10/24/2024 11:30 AM EDT Appointment [facility] [address] [place] [address] Winston Carter MD [address] [place], [place] 01/16/2025 9:10 AM EDT Office Visit [facility] [address] [place] [address] Gerry Marcos DO [address] [place] [address] 02/06/2025 11:00 AM EDT Appointment [facility] Internal Medicine [address] [place], [place] [phone] Winston Carter MD [address] [place], [place] [phone] documented as of this encounter Visit Diagnoses Not on filedocumented in this encounter Additional Health Concerns Assessment Noted Time PHQ-9 Depression Total Score: 7 01/25/20 24 7:46 PM EDT PHQ-2 Depression Total Score: 3 01/25/20 24 7:46 PM EDT documented as of this encounter Care Teams Passenger Service Supervisor Relationship Specialty Start Date End Date Winston Carter MD [address] [place] [address] PCP - General Internal Medicine 01/12/20 Ritika Doe OD [address] [place] [address] [place] [address] Optometry 03/22/20 Winston Carter MD [address] [place] [address] Insurance Assigned Provider 09/26/23 documented as of this encounter Additional Source Comments The information contained in this document represents components of the legal health record. It is not the complete legal health record.[facility]
--- OUTSIDE RECORDS SUMMARY | 2024-08-29 13:30 | XMS_ITS | Encounter Summary ---
Author Organization [facility] Address [address] [facility] [address] [place] [address] Phone Care Team Providers Care Blast Furnace Tender Name Role Phone Nitin Rodríguez MD Unavailable [phone] Lane Cat MD Unavailable [phone] Escobar Khan MD Unavailable [phone] Jose Gomez MD Unavailable Judson Garay MD Unavailable Momo De Los Santos MD Unavailable [phone] Lane Cat MD Unavailable [phone] Winston Carter MD Primary Care Provider Ritika Doe OD Unavailable Brandon Boland MD Unavailable [phone] Brandon Boland MD Unavailable [phone] Winston Carter MD Unavailable [phone] Encounter Details Date Type Department Care Team (Late st Contact Info) Description 06/08/2020 Procedure Pass [facility] [address] [place] [address] Social History Tobacco Use Types Packs/Day [...] high school, GED, job training, learning the Mongolian language, technical skills, or developing parenting skills)? [...] Description 10/05/2024 10:00 AM EDT Office Visit [facility] Danilo AllenDuluth Nixon [address] [place] [address] Lane Fay MD [address] [place] [address] 10/24/2024 11:30 AM EDT Appointment [facility] [address] [place] [address] Winston Carter MD [address] [place], [place] [email or web address] 01/16/2025 9:10 AM EDT Office Visit [facility] [address] Gerry Marcos DO [address] [place] [address] [email or web address] 02/06/2025 11:00 AM EDT Appointment [facility] Internal Medicine [address] [place], [place] [phone] Winston Carter MD [address] [place], [place] [phone] [email or web address] documented as of this encounter Visit Diagnoses Not on filedocumented in this encounter Additional Health Concerns Assessment Noted Time PHQ-9 Depression Total Score: 8 05/16/20 19 9:43 AM EST PHQ-2 Depression Total Score: 2 06/25/19 21 11:28 AM EST documented as of this encounter Care Teams Blast Furnace Tender Relationship Specialty Start Date End Date Winston Carter MD [address] [place] [address] [email or web address] PCP - General Internal Medicine 01/12/20 Nitin Rodríguez MD [address] [place] [address] [email or web address] Historical LMR Provider 04/06/17 06/29/21 Lane Cat MD [address] [place] [address] Dr [address] [place] [address] [email or web address] Historical LMR Provider 04/06/17 08/28/22 Escobar Khan MD [address] [place], [place] [address], [place] [address] [email or web address] Historical LMR Provider 04/06/17 06/29/21 Jose Gomez MD [address] [place] [address] [email or web address] Historical LMR Provider 04/06/17 06/29/21 Judson Garay MD [address] [place] [address] [email or web address] Historical LMR Provider 04/06/17 08/28/22 Momo De Los Santos MD [facility] [address] [place] [address] [email or web address] Historical LMR Provider 04/06/17 06/29/21 Lane Cat MD [address] [place] [address] Dr [address] [place] [address] [email or web address] Insurance Assigned Provider 09/28/19 09/29/20 Ritika Doe OD J[place]on [place] Optometry 03/22/20 Brandon Boland MD [address] [place] [email or web address] Gastroenterology 06/18/20 08/28/22 Brandon Boland MD Javon [place] Gastroenterology 06/28/20 08/28/22 Winston Carter MD [address] [place] [address] [email or web address] Insurance Assigned Provider 09/26/23 documented as of this encounter Additional Source Comments The information contained in this document represents components of the legal health record. It is not the complete legal health record.[facility]
--- OUTSIDE RECORDS SUMMARY | 2024-08-29 13:30 | XMS_ITS | Encounter Summary ---
Author Organization [facility] Address [address] [place] [address] Phone Care Team Providers Care Reeling And Tubing Machine Operator Name Role Phone Winston Carter MD Primary Care Provider [phone] NaderRitika OD Unavailable Winston Carter MD Unavailable [phone] Encounter Details Date Type Department Care Team (Late st Contact Info) Description 09/14/2023 Procedure Pass [facility] [address] [place] [address] Social History Tobacco Use Types Packs/Day Years [...] with a working camera? Not on file Sex and Gender Information Value Date Recorded Sex Assigned at Male 07/29/2020 1:10 PM EST Gender Identity Male 06/06/2020 12:38 PM EST Sexual Orientation Straight 07/29/2020 1: 10 PM EST documented as of this encounter Plan of Treatment Upcoming Encounters Date Type Department Care Team (Late st Contact Info) Description 10/05/2024 10:00 AM EDT Office Visit [facility] [address] [place] [address] [address] [address] Fay MD [address] [place] [address] 10/24/2024 11:30 AM EDT Appointment [facility] Internal Medicine [address] [place] [address] Winston Carter MD [address] [place] [address] 01/16/2025 9:10 AM EDT Office Visit [facility] [address] [place] [address] Gerry Marcos DO [address] [place] [address] 02/06/2025 11:00 AM EDT Appointment [facility] Internal Medicine [address] [place] [address] Winston Carter MD [address] [place] [address] [email or web address] documented as of this encounter Visit Diagnoses Not on filedocumented in this encounter Additional Health Concerns Assessment Noted Time PHQ-9 Depression Total Score: 8 08/22/19 23 2:10 PM EST PHQ-2 Depression Total Score: 4 08/22/19 23 2:10 PM EST documented as of this encounter Care Teams Reeling And Tubing Machine Operator Relationship Specialty Start Date End Date Winston Carter MD [address] [place] [address] [email or web address] PCP - General Internal Medicine 01/12/20 Ritika Doe OD [address] [place] [address] Optometry 03/22/20 Winston Carter MD [address] [place] [address] [email or web address] Insurance Assigned Provider 09/26/23 documented as of this encounter Additional Source Comments The information contained in this document represents components of the legal health record. It is not the complete legal health record.[facility]
--- OUTSIDE RECORDS SUMMARY | 2024-08-29 13:31 | XMS_ITS | Clinical Summary ---
Author Organization [facility] Address [address] [place] [address] Phone Care Team Providers Care Director Of Graduate Admissions Name Role Phone Winston Carter MD Primary Care Provider [phone] Allergies No known active allergies Medications simvastatin (ZOCOR) 40 MG tablet TAKE ONE TABLET BY MOUTH EVERY EVENING 03/05/2020 Active sertraline (ZOLOFT) 100 MG tablet Take 200 mg by mouth daily 05/21/2020 Active rivaroxaban (XARELTO) 15 MG tablet Take 15 mg by mouth daily 07/02/2020 Active oxyCODONE (ROXICODONE) 10 MG immediate release tablet Take 10 mg by mouth 07/30/2020 Active metFORMIN (GLUCOPHAGE) 500 MG tablet TAKE 2 TABLETS BY MOUTH TWICE DAILY 03/05/2020 Active digoxin (LANOXIN) 125 MCG tablet TAKE 1 TABLET BY MOUTH EVERY DAY 11/10/2019 Active carvedilol (COREG) 25 MG tablet Take 25 mg by mouth 2 (two) times a day with meals 07/26/2020 Active Multiple Vitamin (multivitamin) capsule Take 1 capsule by mouth 1 (one) time each day Active Trulicity 1.5 MG/0.5ML solution pen-injector Inject 4.5 Units under the skin every 7 (seven) days 01/17/2021 Active Canagliflozin (Invokana) 100 MG tabletIndicatio ns:Renal osteodystrophy, Hypertensive chronic kidney disease Take 100 mg by mouth daily 60 tablet 3 05/13/2021 Active Active Problems Problem Noted Date Diagnosed Date Stage 3a chronic kidney disease 05/01/2022 Hyperlipidemia 10/22/2020 Overview (08/01/2021): Last Assessment & Plan: Controlled LDL 44 mg/dL on simvastatin 40 mg no changes. Stage 3b chronic kidney disease 09/19/2020 Renal osteodystrophy 09/19/2020 Type 2 diabetes mellitus wit h diabetic chronic kidney disease 09/19/2020 Hypertensive chronic kidney disease 09/19/2020 Resolved Problems Problem Noted Date Diagnosed Date Resolved Date Mild major depression, single episode 06/28/2020 02/07/2021 Long-term current use of anticoagulant 06/09/2019 02/07/2021 Abdominal pain, epigastric 05/22/2019 0 02/07/2021 Overview (09/19/2020): Last Assessment & Plan: She with pain left lower quadrant without change in bowels minimally suspicious for possible early diverticulitis in light of being on Coumadin we will wait and see do not see enough urgency to get a CAT scan we will check a CBC first nothing to suggest this being a kidney stone or UTI or referred pain from testicle Patient encounter status 03/23/2019 Overview (09/19/2020): Last Assessment & Plan: Patient up-to-date immunizations would benefit from Shingrix however has a healthcare proxy did discussed MOLST form up-to-date and colonoscopies. Denies BPH symptoms t Pain in left arm 02/14/2019 02/07/2021 Overview (09/19/2020): Last Assessment & Plan: Patient with left arm pain suggestive of a pinched nerve discussed referral to physiatry if persists and/or x-rays of the neck to start with also discussed possible use of increased Neurontin. Does have chronic oxycodone for his sciatica prescription was refilled Partial thickness rotator cuff tear 12/29/2018 02/07/2021 Overview (09/19/2020): Last Assessment & Plan: Probable rotator cuff tendinitis versus tear of the left rotator cuff is limiting him somewhat but does not want to consider surgery or injection at this time Malaise and fatigue 08/23/2018 02/08/20 Overview (09/19/2020): Last Assessment & Plan: Proved with CPAP also with psychologist needs increased regular exercise and weight reduction Mixed anxiety and depressive disorder 07/08/2018 02/07/2021 Overview (09/19/2020): Last Assessment & Plan: Doing very well considering the COVID- of his father and his mother multiple medical problems his psychologist work is helping quite a bit along with his sertraline no changes recommended Thoracic back pain 07/08/2018 Overview (09/19/2020): Last Assessment & Plan: With multiple trigger points somewhat atypical does not appear to be on the spine itself discussed possible discogenic disease but atypical. To consider follow-up with [facility] instead of Dr. Martinez. Bilateral shoulder joint pain 05/27/2018 02/07/2021 Overview (09/19/2020): Last Assessment & Plan: He the shoulder seems severe enough to warrant injection did recommend both range of motion exercises reviewed them again and along with Thera-Band's. Try to avoid sleeping on that side or with arm extended Pre-operative cardiovascular examination 04/21/2018 02/07/2021 Overview (09/19/2020): Last Assessment & Plan: Pt w chr afib wo any angina and does still smoke and some CANAS On coumadin and rate controlled w meds Will check EKG but see no medical contraindication to Pt having his back surgery. Urged cessation of smoking prior to surgery at least Bronchitis 02/04/2018 02/07/2021 Overview (09/19/2020): Last Assessment & Plan: Patient with what sounds like a viral URI on top of smoking likely got from visiting the hospital with his father. Did recommend using a mask when he visits the day and to contact us for antibiotic only if he starts spiking fevers or gets purulent rhinorrhea or increased shortness of breath Sciatica of right side 10/12/201702/07 Overview (09/19/2020): Last Assessment & Plan: Sciatica denies much in way weakness still requires pain medication usually twice a day to consider follow-up with Dr. Martinez but no real change Last Assessment & Plan: Discussed pain in the right hip to the testicles likely is a radicular pain and does not sound like it is a kidney stone since it comes with exertion and has no urinary symptoms recommend weight reduction and back exercises Atrial fibrillation 09/14/2017 02/08/20 Overview (09/19/2020): Last Assessment & Plan: EKG today shows rate controlled atrial fibrillation nonspecific changes. He is on digoxin we will check a digoxin level with his next set of labs he says he has a physical in a month I put the order in. I am also to repeat his echocardiogram just to evaluate and follow-up his left ventricular size and his left atrial size it has been a couple of years Dyspnea on exertion 09/14/2017 02/08/20 Overview (09/19/2020): Last Assessment & Plan: Somewhat worried possible anginal equivalent as occurs post dinner but not w walking To contact us if worse or more freq for ETT but would need EKG prior Chronic atrial fibrillation 05/07/2017 02/07/2021 Overview (09/19/2020): Last Assessment & Plan: Doing well with rate control with dig and beta-lj and is also for INR tomorrow Depressive disorder 05/07/2017 02/08/20 Overview (09/19/2020): Last Assessment & Plan: Patient with some worsening depression question of is due to his father being in the hospital with all the baggage that brings he declines seeing a psychiatrist at this time he denies being suicidal urged from increased regular activity to help with his feeling Essential hypertension 05/07/201702/07 Overview (09/19/2020): Last Assessment & Plan: Controlled with meds overdue for urine microalbumin and comprehensive panel Nicotine dependence 05/07/2017 02/08/20 Overview (09/19/2020): Last Assessment & Plan: Working on smoking cessation as above. He is on vaping and cut down the 6-3 he promises next time he sees me he will be done with 6 Obstructive sleep apnea syndrome 05/07/2017 02/07/2021 Overview (09/19/2020): Last Assessment & Plan: Remains compliant with CPAP. We will continue. Severe obesity 05/07/2017 02/07/2021 Overview (09/19/2020): Last Assessment & Plan: He is very sedentary we talked about at least trying to do 30 minutes of exercise in between his many hours of TV watching. Type 2 diabetes mellitus without complication 05/07/20 17 02/07/2021 Overview (09/19/2020): Last Assessment & Plan: With relatively poor diabetic control needs weight loss and increased regular exercise with decreased calories he is to get an A1c done tomorrow when he gets his INR check Encounters Date Type Department Care Team Description 08/10/2024 Orders Only [facility] [address] [place] [address] Zhen England MD Stage 3b chronic kidney disease (HCC); Renal osteodystrophy; Type 2 diabetes mellitus with diabetic chronic kidney disease (HCC); Hypertensive chronic kidney disease from Last 3 Months Immunizations Name Administration Dates Next Due Influenza, Quadrivalent, Preservative Free 05/06,03/22/2020 Influenza, Recombinant, Quadrivalent, Pf 019,05/27/2018 Influenza, Unspecified 2022 [place] SARS-COV-2 09/20/2020 PPD Test 03/23/2018 Pneumococcal Conjugate 08/28/2022 Pneumococcal Polysaccharide 05/16/2019 Td 03/12/2017 Tdap 08/30/2015 Zoster 08/31/2020,06/28/2020 Family History Medical History Relation Comments Diabetes Father Heart disease Father Hypertension Father Cancer Mother Relation Status Comments Father Mother Social History Tobacco Use Types Packs/Day Years Used Date Smoking Tobacco: Never Assessed Sex and Gender Information Value Date Recorded Sex Assigned at Not on file Legal Sex Male 8:27 AM EST Gender Identity Not on file Sexual Orientation Not on file Last Filed Vital Signs Vital Sign Reading Time Taken Comments Blood Pressure 142/84 03/10/2024 1:25 PM EDT Pulse 88 03/10/2024 1:25 PM EDT Temperature - - Respiratory Rate - - Oxygen Saturation 98% 03/10/2024 1:25 PM EDT Inhaled Oxygen Concentration - - Weight 122 kg (269 lb 6.4 oz) 03/10/2024 1:25 PM EDT Height - - Body Mass Index - - Plan of Treatment Upcoming Encounters Date Type Department Care Team (Late st Contact Info) Description 09/08/2024 2:00 PM EDT Office Visit [facility] [address] [phone] Zhen England MD [address] [phone] Health Maintenance Due Date Last Done Comments Colorectal Cancer Screening: Annual FOBT 2006 Colorectal Cancer Screening: Colonoscopy 2006 Colorectal Cancer Screening: Sigmoidoscopy 2006 Diabetes: Ophthalmology Exam 08/15/2020 Diabetes: Pedal Pulse Checked 08/15/2020 Diabetes: Sensory Foot Exam 08/15/2020 Diabetes: Visual Foot Exam 08/15/2020 Pneumococcal Vaccine: 65+ Years (2 of 2 - PCV) 08/29/2023 08/28/2022, 05/16/2019 Diabetes: Hemoglobin A1C 10/16/2024 07/18/2024 Influenza Vaccine Completed 07/04/2024, , 05/06/2021, Additional history exists Hepatitis B Vaccine Aged Out No longe r eligible based on patient's age to complete this topic Insurance [place]ID [place] Care Teams Director Of Graduate Admissions Relationship Specialty Start Date End Date Winston Carter MD [address] [place] [address] PCP - General Internal Medicine 08/15/20
== END 2024-08-29 11:46 | disposition home or self-care (01) ==
LOC: HO.SH 11:45
PROVIDERS: Visit Provider Internal Medicine
DX: Z46.1 Encounter for fitting and adjustment of hearing aid (principal); H90.3 Sensorineural hearing loss, bilateral
CPT/HCPCS: V5267

== ENCOUNTER 2024-11-10 15:02 | Outpatient (REF) | payer SELFPAY ==
--- OUTSIDE RECORDS SUMMARY | 2024-11-10 15:06 | XMS_ITS | Clinical Summary ---
Author Organization [facility] Address [address] [place] [address] Phone Care Team Providers Care Harness Rigger Name Role Phone Winston Carter MD Primary Care Provider [phone] Allergies No known active allergies Medications simvastatin (ZOCOR) 40 MG tablet TAKE ONE TABLET BY MOUTH EVERY EVENING 0 Active sertraline (ZOLOFT) 100 MG tablet Take 200 mg by mouth daily 0 Active rivaroxaban (XARELTO) 15 MG tablet Take 15 mg by mouth daily 1 Active oxyCODONE (ROXICODONE) 10 MG immediate release tablet Take 10 mg by mouth 1 Active metFORMIN (GLUCOPHAGE) 500 MG tablet TAKE 2 TABLETS BY MOUTH TWICE DAILY 0 Active digoxin (LANOXIN) 125 MCG tablet TAKE 1 TABLET BY MOUTH EVERY DAY 0 Active carvedilol (COREG) 25 MG tablet Take 25 mg by mouth 2 (two) times a day with meals 1 Active Multiple Vitamin (multivitamin) capsule Take 1 capsule by mouth 1 (one) time each day Active Trulicity 1.5 MG/0.5ML solution pen-injector Inject 4.5 Units under the skin every 7 (seven) days 1 Active Canagliflozin (Invokana) 100 MG tabletIndicatio ns:Renal osteodystrophy, Hypertensive chronic kidney disease Take 100 mg by mouth daily 60 tablet 3 1 Active Additional Information Patient not taking.Reported on 09/08/2024 Jardiance 10 MG tablet Take 10 mg by mouth 5 Active Ozempic, 1 MG/DOSE, 4 MG/3ML solution pen-injector inject one mg under the skin every 7 days Active Active Problems Problem Noted Date Diagnosed [...] & Plan: Doing very well considering the - of his father and his mother multiple medical problems his psychologist work is helping quite a bit along with his sertraline no changes recommended Thoracic back pain 07/08/2018 Overview (09/19/2020): Last Assessment & Plan: With multiple trigger points somewhat atypical does not appear to be on the spine itself discussed possible discogenic disease but atypical. To consider follow-up with [facility] instead of Dr. Martinez. [...] Encounters Date Type Department Care Team Description 09/08/2024 2:00 PM EDT Office Visit [facility] [address] [place] [phone] Zhen England MD Stage 3a chronic kidney disease (HCC) (Primary Dx); Type 2 diabetes mellitus with diabetic chronic kidney disease (HCC); Renal osteodystrophy from Last 3 Months Immunizations Immunization Administration Dates Next Due Influenza, Quadrivalent, Preservative [...] Sign Reading Time Taken Comments Blood Pressure 128/90 09/08/2024 2:18 PM EDT Pulse 66 09/08/2024 2:18 PM EDT Temperature - - Respiratory Rate - - Oxygen Saturation 96% 09/08/2024 2:18 PM EDT Inhaled Oxygen Concentration - - Weight 122 kg (270 lb) 09/08/2024 2:18 PM EDT Height - - Body Mass Index - - Plan of Treatment Upcoming Encounters Date Type Department Care Team (Late st Contact Info) Description 09/07/2025 1:15 PM EDT [facility] Visit [facility] [address] [phone] Zhen England MD [address] [address] Health Maintenance Due Date Last Done Comments Colorectal Cancer Screening: Annual FOBT 2006 Colorectal Cancer Screening: Colonoscopy 2006 Colorectal Cancer Screening: Sigmoidoscopy 2006 Diabetes: Ophthalmology Exam 08/15/2020 Diabetes: Pedal Pulse Checked 08/15/2020 Diabetes: Sensory Foot Exam 08/15/2020 Diabetes: Visual Foot Exam 08/15/2020 Pneumococcal Vaccine: 50+ Years (2 of 2 - PCV) 08/29/2023 08/28/2022, 05/16/2019 Diabetes: Hemoglobin A1C 10/16/2024 07/18/2024 Pneumococcal Vaccine: Peds (0 to 5 Years) and At-Risk Patients (6 to 49 Years) Discontinued 08/28/2022, 05/16/2019 Influenza Vaccine Completed 07/04/2024, , 05/06/2021, Additional history exists Hepatitis B Vaccine Aged Out No longe r eligible based on patient's age to complete this topic Procedures Procedure Name Priority Date/Time Associated Diagnosis Comments PTH, INTACT Routine 09/01/2024 2:34 PM EDT MAGNESIUM Routine 09/01/2024 2:34 PM EDT VITAMIN D 25 HYDROXY Routine 09/01/2024 2:34 PM EDT URINE ALBUMIN / CREATININE RATIO Routine 09/01/2024 2:34 PM EDT PROTEIN / CREATININE RATIO, URINE Routine 09/01/2024 2:34 PM EDT CBC Routine 09/01/2024 2:34 PM EDT RENAL FUNCTION PANEL Routine 09/01/2024 2:34 PM EDT URINALYSIS WITH MICROSCOPIC Routine 09/01/2024 2:34 PM EDT MICROSCOPIC EXAMINATION - DO NOT USE Routine 09/01/2024 2:34 PM EDT from Last 3 Months Results * Microscopic Examination (09/01/2024 2:34 PM EDT) WBC, Urine None seen 0 - 5 /hpf [facility] RBC, Urine None seen 0 - 2 /hpf [facility] Squamous Epithelial, Urine None seen 0 - 10 /hpf [facility] Casts None seen None seen /lpf [facility] Bacteria, Urine None seen None seen/Few [facility] 09/01/2024 2:34 PM EDT 09/01/2024 us Zhen England MD LAB MICROBIOLOGY - GENERAL OR DERABLES Final Result Performing Organization Address [facility] Co de Phone Number [facility] [address] [place] [address] * Protein, Total, Random Urine w/Creatinine (Protein/Creat Ratio) (09/01/2024 2:34 PM EDT) Creatinine, Ur 88.4 Not Estab. mg/dL [facility] Protein, Ur 17.2 Not Estab. mg/dL [facility] Urine Protein/Creatin ine Ratio 195 0 - 200 mg/g creat [facility] 09/01/2024 2:34 PM EDT 09/01/2024 us Zhen England MD LAB URINE ORDERABLES Final Re sult Performing Organization Address [facility] de Phone Number [facility] [address] [place] [address] * (ABNORMAL) Urine Albumin / Creatinine Ratio (09/01/2024 2:34 PM EDT) Albumin, Urine 55.5 Not Estab. ug/mL [facility] Albumin/Creatin ine Ratio 63(H) 0 - 29 mg/g creat [facility] Comment: ? Normal: ?0 - ??29 ? Moderately increased: 30 - 300 ? Severely increased: ? >300 09/01/2024 2:34 PM EDT 09/01/2024 Zhen England MD LAB URINE ORDERABLES Final Re sult Performing Organization Address City/[facility]/ZIP Co de Phone Number [facility] [address] [place] [address] * Vitamin D 25 Hydroxy (09/01/2024 2:34 PM EDT) Vitamin D, 25-OH, Total 38.7 30.0 - 100.0 ng/mL [facility] Comment: Vitamin D deficiency has been defined by the [place] of Medicine and an Endocrine Society practice guideline as a level of serum 25-OH vitamin D less than 20 ng/mL (1,2). The Endocrine Society went on to further define vitamin D insufficiency as a level between 21 and 29 ng/mL (2). 1. IOM ([place] of Medicine). 2010. Dietary reference ?? intakes for calcium and D. [place]: The ?? National Academies Press. 2. Yue MF, Keerthi NC, Shaggy RUSSO, et al. ?? Evaluation, treatment, and prevention of vitamin D ?? deficiency: an Endocrine Society clinical practice ?? guideline. JCEM. 2010; 96(7):1911-30. 09/01/2024 2:34 PM EDT 09/01/2024 Zhen England MD LAB BLOOD ORDERABLES Final Re sult Performing Organization Address City/[facility]/ZIP Co de Phone Number [facility] [address] [place] [address] * (ABNORMAL) Urinalysis with microscopic (09/01/2024 2:34 PM EDT) Specific [place], Urine 1.027 1.005 - 1.030 [facility] pH Urine 6.0 5.0 - 7.5 [facility] Color, Urine Yellow Yellow [facility] Appearance Urine Clear Clear [facility] WBC Esterase Urine Negative Negative [facility] Protein, Ur Trace Negative/Tra ce [facility] Glucose, Ur 3+(A) Negative [facility] Ketones, Urine Negative Negative [facility] Blood Urine Negative Negative [facility] [phone] Bilirubin Urine Negative Negative [facility] Urobilinogen Urine 1.0 0.2 - 1.0 mg/dL [facility] Nitrite, Urine Negative Negative [facility] Microscopic Examination Comment [facility] Comment:Microscopic follows if indicated. Other Microsc. Observations See below: [facility] Comment:Microscopic was en cated and was performed. 09/01/2024 2:34 PM EDT 09/01/2024 us Zhen England MD LAB URINE ORDERABLES Final Re sult [facility] [address] [place] [address] * (ABNORMAL) CBC (09/01/2024 2:34 PM EDT) WBC 7.5 3.4 - 10.8 x10E3/uL [facility] RBC 5.26 4.14 - 5.80 x10E6/uL [facility] Hemoglobin 17.5 13.0 - 17.7 g/dL [facility] Hematocrit 50.8 37.5 - 51.0 % [facility] MCV 97 79 - 97 fL [facility] MCH 33.3(H) 26.6 - 33.0 pg [facility] MCHC 34.4 31.5 - 35.7 g/dL [facility] RDW 11.9 11.6 - 15.4 % [facility] Platelets 221 150 - 450 x10E3/uL [facility] 09/01/2024 2:34 PM EDT 09/01/2024 Zhen England MD LAB BLOOD ORDERABLES Final Re sult Performing Organization Address [facility]/ZIP Co de Phone Number [facility]CO [facility] [address] [place] [address] * PTH, Intact (09/01/2024 2:34 PM EDT) PTH 46 15 - 65 pg/mL [facility] 09/01/2024 2:34 PM EDT 09/01/2024 Zhen England MD LAB BLOOD ORDERABLES Final Re sult Performing Organization Address [facility]/ZIP Co de Phone Number [facility]CO [facility] [address] [place] [address] * Magnesium (09/01/2024 2:34 PM EDT) Magnesium 1.9 1.6 - 2.3 mg/dL [facility] 09/01/2024 2:34 PM EDT 09/01/2024 Zhen England MD LAB BLOOD ORDERABLES Final Re sult Performing Organization Address City/[facility]/ZIP Co de Phone Number [facility] [address] [place] [address] * (ABNORMAL) Renal Function Panel (09/01/2024 2:34 PM EDT) Glucose 113(H) 70 - 99 mg/dL [facility] BUN 19 8 - 27 mg/dL [facility] Creatinine 1.53(H) 0.76 - 1.27 mg/dL [facility] eGFR CKD-EPI CR 2020 50(L) >59 mL/min/1.7 3 [facility] BUN/Creatinine Ratio 12 10 - 24 [facility] Sodium 143 134 - 144 mmol/L [facility] Potassium 5.2 3.5 - 5.2 mmol/L [facility] Chloride 104 96 - 106 mmol/L [facility] Bicarbonate (CO2) 23 20 - 29 mmol/L [facility] Calcium 9.6 8.6 - 10.2 mg/dL [facility] Phosphorus 3.8 2.8 - 4.1 mg/dL [facility] Albumin 4.5 3.9 - 4.9 g/dL [facility] 09/01/2024 2:34 PM EDT 09/01/2024 us Zhen England MD LAB BLOOD ORDERABLES Final Re sult [facility] [address] [place] [address] from Last 3 Months Insurance Medicare Medicaid [place] Medicare Medicaid [place] Care Teams Harness Rigger Relationship Specialty Start Date End Date Winston Carter MD [address] [place] [phone] PCP - General Internal Medicine 08/15/20
--- NOTE | 2024-11-10 16:21 | MHC.AU.HA3 ---
Hearing Instrument Follow-Up- Binaural Date of Visit: 11/10/24 Right Ear: Guido, Model, Color, Serial Number: J Luis SILVESTRE 1600 ITC-R SN: [id number] Color: [place] Fruit Stuffer Repair Warranty: 12/02/2026 Fruit Stuffer Loss and Damage Warranty: 12/02/2026 [facility] Service Plan: 11/18/2024 Battery Size: Rechargeable Type of Wax Guard: HearClear Dispensed By: [facility] Date of Fittin11/19/2023 Left Ear: Guido Model, Color, Serial Number: J Luis SILVESTRE 1600 ITC-R SN: [id number] Color: [place] Fruit Stuffer Repair Warranty: 12/02/2026 Fruit Stuffer Loss and Damage Warranty: 12/02/2026 [facility] Service Plan: 11/18/2024 Battery Size: Rechargeable Type of Wax Guard: HearClear Dispensed By: [facility] Date of Fittin11/19/2023 Follow-Up Summary: Ryan reports his left hearing stopped working a day or so ago. Cleaned both aids, replaced wax guards, replaced mirza covers, ran through dehumidifier. Listening check positive right, no amplification left. 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 Sending left for repair. Recommendations: Recommendations: Patient will be contacted when materials have arrived. Recommendations (Other): Needs appointment to pair aids. Diagnosis Code(s): Primary Diagnosis: H90.3 Bilateral Sensorineural Hearing Loss Signature: Provider: Levon Dougherty, [facility]
== END 2024-11-10 15:03 | disposition home or self-care (01) ==
LOC: HO.HAP 15:02
PROVIDERS: Visit Provider Internal Medicine
DX: Z13.89 Encounter for screening for other disorder (principal)

== ENCOUNTER 2024-11-24 14:50 | Outpatient (REF) | payer SELFPAY ==
--- OUTSIDE RECORDS SUMMARY | 2024-11-24 17:31 | XMS_ITS | Clinical Summary ---
Author Organization [facility] Address [address] [place] [address] Phone Care Team Providers Care Insurance Case Manager Name Role Phone Winston Carter MD Primary Care Provider Allergies No known active allergies Medications simvastatin [...] disease but atypical. To consider follow-up with [facility] instead of Dr. Martinez. [...] Visit [facility] [address] [place] [phone] Zhen England MD Stage 3a chronic [...] Office Visit [facility] [address] [phone] Zhen England MD [address] [phone] Health Maintenance Due Date Last [...] None seen 0 - 5 /hpf [facility] RBC, Urine None seen 0 - 2 /hpf [facility] Squamous Epithelial, Urine None seen 0 - 10 /hpf [facility] Casts None seen None seen /lpf [facility] Bacteria, Urine None seen None seen/Few [facility] 09/01/2024 2:34 PM EDT 09/01/2024 us Zhen England MD LAB MICROBIOLOGY - GENERAL OR DERABLES Final Result Performing Organization Address [facility] Co de Phone Number [facility] [address] [place] [address] * Protein, Total, Random Urine w/Creatinine (Protein/Creat Ratio) (09/01/2024 2:34 PM EDT) Creatinine, Ur 88.4 Not Estab. mg/dL [facility] Protein, Ur 17.2 Not Estab. mg/dL [facility] Urine Protein/Creatin ine Ratio 195 0 - 200 mg/g creat [facility] 09/01/2024 2:34 PM EDT 09/01/2024 us Zhen England MD LAB URINE ORDERABLES Final Re sult Performing Organization Address [facility] de Phone Number [facility] [address] [place] [address] * (ABNORMAL) Urine Albumin / Creatinine Ratio (09/01/2024 2:34 PM EDT) Albumin, Urine 55.5 Not Estab. ug/mL [facility] Albumin/Creatin ine Ratio 63(H) 0 - 29 mg/g creat [facility] Comment: ? Normal: ?0 - ??29 ? Moderately increased: 30 - 300 ? Severely increased: ? >300 09/01/2024 2:34 PM EDT 09/01/2024 Zhen England MD LAB URINE ORDERABLES Final Re sult Performing Organization Address City/[facility]/ZIP Co de Phone Number [facility] [address] [place] [address] * Vitamin D 25 Hydroxy (09/01/2024 2:34 PM EDT) Vitamin D, 25-OH, Total 38.7 30.0 - 100.0 ng/mL [facility] Comment: Vitamin D deficiency has been defined by the [place] of Medicine and an Endocrine Society practice guideline as a level of serum 25-OH vitamin D less than 20 ng/mL (1,2). The Endocrine Society went on to further define vitamin D insufficiency as a level between 21 and 29 ng/mL (2). 1. IOM ([place] of Medicine). 2010. Dietary reference ?? intakes [...] ORDERABLES Final Re sult Performing Organization Address City/[facility]/ZIP Co de Phone Number [facility] [address] [place] [address] * (ABNORMAL) Urinalysis with microscopic (09/01/2024 2:34 PM EDT) Specific [place], Urine 1.027 1.005 - 1.030 [facility] [phone] pH Urine 6.0 5.0 - 7.5 [facility] Color, Urine Yellow Yellow [facility] Appearance Urine Clear Clear [facility] [phone] WBC Esterase Urine Negative Negative [facility] Protein, Ur Trace Negative/Tra ce [facility] Glucose, Ur 3+(A) Negative [facility] Ketones, Urine Negative Negative [facility] Blood Urine Negative Negative [facility] [phone] Bilirubin Urine Negative Negative [facility] Urine 1.0 0.2 - 1.0 mg/dL [facility] Nitrite, Urine Negative Negative [facility] [phone] Microscopic Examination Comment [facility] Comment:Microscopic follows if indicated. Other Microsc. Observations See below: [facility] Comment:Microscopic was en cated and was performed. 09/01/2024 2:34 PM EDT 09/01/2024 us Zhen England MD LAB URINE ORDERABLES Final Re sult [facility] [address] [place] [address] * (ABNORMAL) CBC (09/01/2024 2:34 PM EDT) WBC 7.5 3.4 - 10.8 x10E3/uL [facility] RBC 5.26 4.14 - 5.80 x10E6/uL [facility] Hemoglobin 17.5 13.0 - 17.7 g/dL [facility] Hematocrit 50.8 37.5 - 51.0 % [facility] MCV 97 79 - 97 fL [facility] MCH 33.3(H) 26.6 - 33.0 pg [facility] MCHC 34.4 31.5 - 35.7 g/dL [facility] RDW 11.9 11.6 - 15.4 % [facility] Platelets 221 150 - 450 x10E3/uL [facility] 09/01/2024 2:34 PM EDT 09/01/2024 Zhen England MD LAB BLOOD ORDERABLES Final Re sult Performing Organization Address [facility]/ZIP Co de Phone Number [facility] [address] [place] [address] * PTH, Intact (09/01/2024 2:34 PM EDT) PTH 46 15 - 65 pg/mL [facility] 09/01/2024 2:34 PM EDT 09/01/2024 Zhen England MD LAB BLOOD ORDERABLES Final Re sult Performing Organization Address [facility]/ZIP Co de Phone Number [facility] [address] [place] [address] * Magnesium (09/01/2024 2:34 PM EDT) Magnesium 1.9 1.6 - 2.3 mg/dL [facility] 09/01/2024 2:34 PM EDT 09/01/2024 Zhen England MD LAB BLOOD ORDERABLES Final Re sult Performing Organization Address City/[facility]/ZIP Co de Phone Number [facility] [address] [place] [address] * (ABNORMAL) Renal Function Panel (09/01/2024 2:34 PM EDT) Glucose 113(H) 70 - 99 mg/dL [facility] BUN 19 8 - 27 mg/dL [facility] Creatinine 1.53(H) 0.76 - 1.27 mg/dL [facility] eGFR CKD-EPI CR 2020 50(L) >59 mL/min/1.7 3 [facility] BUN/Creatinine Ratio 12 10 - 24 [facility] Sodium 143 134 - 144 mmol/L [facility] Potassium 5.2 3.5 - 5.2 mmol/L [facility] Chloride 104 96 - 106 mmol/L [facility] Bicarbonate (CO2) 23 20 - 29 mmol/L [facility] Calcium 9.6 8.6 - 10.2 mg/dL [facility] Phosphorus 3.8 2.8 - 4.1 mg/dL [facility] Albumin 4.5 3.9 - 4.9 g/dL [facility] 09/01/2024 2:34 PM EDT 09/01/2024 us Zhen England MD LAB BLOOD ORDERABLES Final Re sult [facility] [address] [place] [address] from Last 3 Months Insurance Medicare Medicaid [place] Medicare [place] Care Teams Insurance Case Manager Relationship Specialty Start Date End Date Winston Carter MD [address] [place] [phone] PCP - General Internal Medicine 08/15/20
== END 2024-11-24 14:51 | disposition home or self-care (01) ==
LOC: HO.HAP 14:50
PROVIDERS: Visit Provider Internal Medicine
DX: Z46.1 Encounter for fitting and adjustment of hearing aid (principal); H90.3 Sensorineural hearing loss, bilateral
CPT/HCPCS: 92593